=== PATIENT | female | born 1950 | race African-American/Black ===

== ENCOUNTER 2018-05-23 16:44 | Inpatient (IN) | payer MEDICARE, OTHER ==
[~2018-05-23] VITALS: Ht 167.6 cm; Wt 94.3 kg
[2018-05-23 16:59] VITALS: BP 156/95
--- NOTE | 2018-05-23 17:02 | NUR ---
NANNETTE FROM [facility] DT LOW O2 SAT, PATIENT IS VENT/TRACHE DEPENDENT, ON 100% FI02 UPON ARRIVAL. PATIENT IS NON DIAPHORETIC, RECTAL TEMP 101. RT AT BEDSIDE. MD AT BEDSIDE.
--- NOTE | 2018-05-23 17:12 | NUR ---
TRACH PORTEX 7. CURRENT SETTINGS AC 12 TV 400 FIO2 100 PEEP 5.
[2018-05-23] MEDS ORDERED: ACETAMINOPHEN 325 MG TABLET MC ONE (17:30)
[2018-05-23 17:35] LABS: APPEARANCE,URINE SL CLOUDY (CLEAR); BILIRUBIN,URINE NEGATIVE (NEGATIVE); BLOOD, URINE TRACE-INTA Ery/uL (NEGATIVE); COLOR,URINE YELLOW (YELLOW); KETONES,URINE NEGATIVE (NEGATIVE); LEUKOCYTE ESTERASE ,URINE 2+ (NEGATIVE); NITRITE, URINE NEGATIVE (NEGATIVE); PH,URINE 7.5 (5.0-8.0); PROTEIN,URINE 2+ mg/dl (NEGATIVE); UGLUCOSE NEGATIVE (NEGATIVE); UROBILINOGEN,URINE 0.2 EU/dL (0.2)
[2018-05-23 17:38] LABS: BASOPHILS % (AUTO) 0.3 % (0.0-2.0); HEMATOCRIT 27 % (33-45); HEMOGLOBIN 8.8 g/dL (11.5-14.8); LYMPHOCYTES # (AUTO) 1.3 /CMM (0.8-4.8); LYMPHOCYTES % (AUTO) 7.9 % (20.0-44.0); MEAN CORPUSCULAR HEMOGLOBIN 27 PG (26.0-33.0); MEAN CORPUSCULAR HGB CONC 32 g/dl (31.0-36.0); MEAN CORPUSCULAR VOLUME 84 fL (82-100); MONOCYTES # (AUTO) 1.2 /CMM (0.1-1.30); MONOCYTES % (AUTO) 7.6 % (2.0-12.0); NEUTROPHILS % (AUTO) 81.2 % (43.0-81.0); PLATELET COUNT (AUTO) 168 /CMM (150-450); RDW COEFFICIENT OF VARIATION 18.8 (11.5-15.0); RED BLOOD CELL COUNT(AUTO) 3.25 MIL/uL (4.0-5.2)
[2018-05-23] MEDS ORDERED: ACETAMINOPHEN 325 MG TABLET ONE (17:40)
[2018-05-23 17:42] LABS: ABG BASE EXCESS 4.9 mmol/L; ABG OXYGEN SATURATION 98.5 % (92.0-98.5); ABG PCO2 31.5 mmHg (35.0-45.0); ABG PH 7.555 (7.350-7.450); ABG PO2 146.7 mmHg (75.0-100.0); AaDO2 534.8 mmHg; COHb 0.4 % (0.5-1.5); MetHb 0.2 % (0.0-1.5); O2Hb 97.9 % (94.0-97.0); PEEP,BG 5 cm H2O; SITE, ABG Right Radial; VT, ABG 400 mL
[2018-05-23 17:47] LABS: BACTERIA,URINE Few /HPF (None Seen); RBC,URINE 0-2 /HPF (0-2); SQUAMOUS EPITHELIAL CELL,UR Few /HPF (None Seen); WBC,URINE 21-50 /HPF (0-3)
[2018-05-23 17:54] LABS: ALBUMIN 1.9 g/dL (3.4-5.0); BILIRUBIN,DIRECT 0.3 mg/dL (0.0-0.2); BILIRUBIN,TOTAL 0.5 mg/dL (0.2-1.0); CALCIUM, SERUM 8.4 mg/dL (8.5-10.1); CREATININE 0.8 mg/dL (0.6-1.3); POTASSIUM 5.3 mmol/L (3.5-5.1); TOTAL PROTEIN, SERUM 8.2 g/dL (6.4-8.2)
[2018-05-23 17:56] LABS: TROPONIN I 0.018 ng/mL (0.00-0.056)
[2018-05-23 17:59] LABS: INR 1.21 (0.87-1.13)
[2018-05-23] MEDS ORDERED: ALBUTEROL FS 2.5 MG/0.5 ML VIAL.NEB ONE (18:48)
[2018-05-23] MEDS ORDERED: ALBUTEROL FS 2.5 MG/0.5 ML VIAL.NEB NEB ONE (19:00)
[2018-05-23] MEDS ORDERED: MEROPENEM 1,000 MG in IV NS 0.9% 100 ML IV ONE (19:00)
[2018-05-23] MEDS ORDERED: VANCOMYCIN 1 GM in IV D5W 250 ML IV ONE (19:00)
[2018-05-23] MEDS ORDERED: LEVOFLOXACIN 750 MG /D5W 150ML 150 ML IV ONE (19:03)
--- NOTE | 2018-05-23 19:17 | NUR ---
CALLED NURSE SUP FOR ICU BED
[2018-05-23] MEDS ORDERED: IV NS 0.9% 1,000 ML IV PRN (19:24)
[2018-05-23] MEDS ORDERED: ONDANSETRON HCL/PF 4 MG/2 ML VIAL IVP PRN (19:30)
[2018-05-23] MEDS ORDERED: ALBUTEROL FS 2.5 MG/0.5 ML VIAL.NEB NEB PRN (19:30)
[2018-05-23] MEDS ORDERED: MAG HYDROX/AL HYDROX/SIMETH 30 ML UDC PO PRN (19:30)
[2018-05-23] MEDS ORDERED: MAGNESIUM HYDROXIDE 30 ML UDC PO PRN (19:30)
[2018-05-23] MEDS ORDERED: HYDROCODONE/APAP 5/325MG 1 EACH TABLET PO PRN (19:30)
[2018-05-23] MEDS ORDERED: ACETAMINOPHEN 325 MG TABLET PO PRN (19:30)
[2018-05-23] MEDS ORDERED: ZOLPIDEM TARTRATE 5 MG TABLET PO PRN (19:30)
[2018-05-23] MEDS ORDERED: VANCOMYCIN 1 GM in IV NS 0.9% 250 ML IV SCH (19:30)
[2018-05-23] MEDS ORDERED: IPRATROPIUM NEB FS 0.5 MG/2.5 ML AMPUL.NEB NEB PRN (19:30)
[2018-05-23 19:52] LABS: ABG BASE EXCESS 7.2 mmol/L; ABG OXYGEN SATURATION 98.3 % (92.0-98.5); ABG PCO2 52.2 mmHg (35.0-45.0); ABG PH 7.414 (7.350-7.450); ABG PO2 152.8 mmHg (75.0-100.0); COHb 0.4 % (0.5-1.5); MetHb 0.6 % (0.0-1.5); O2Hb 97.3 % (94.0-97.0); PEEP,BG 5 cm H2O; SITE, ABG Right Radial; VENT MODE, BG AC 12; VT, ABG 400 mL
[2018-05-23] MEDS: LEVOFLOXACIN 750 MG /D5W 150ML PIGGYBACK IV ONE ×2 (20:58→21:10)
--- NOTE | 2018-05-23 20:58 | NUR ---
REPORT GIVEN TO CARYN. PT AWAITING TRANSFER TO ICU.
[2018-05-23] MEDS ORDERED: FEE PK DOSING 1 MIN EA MC ONE (21:04)
--- NOTE | 2018-05-23 21:20 | NUR ---
TRANSFERED TO FLOOR. STABLE CONDITION.
--- NOTE | 2018-05-23 21:20 | NUR ---
PT RECEIVED WITH A PORTEX 7 TRACH ON [facility] VENT WITH NOTED SETTINGS. SUCTIONED MODERATE AMOUNT OF ARMSTRONG THICK SECRETIONS. VENT ALARMS ARE SET AND AUDIBLE WITH AMBU BAG AT BEDSIDE. SLOT MACHINE FLOOR PERSON CUFF PRESSURE NOTED. VENT IS PLUGGED INTO RED OUTLET NO RESPIRATORY DISTRESS NOTED AT THIS TIME, WILL CONTINUE TO MONITOR.
[2018-05-23 21:30] VITALS: BP 124/86
[2018-05-23] MEDS: ENOXAPARIN SODIUM 40 MG/0.4 ML DISP.SYRIN SQ SCH ×2 (21:49→21:56)
--- NOTE | 2018-05-23 21:56 | NUR ---
ICU/RN- LOVENOX DOSE 40MG SQ WAS NOT GIVEN, PER DOCUMENTATION FROM NURSING FACILITY PT. RECEIVED 80 MG SC TODAY.
[2018-05-23 22:00] VITALS: BP 104/59
--- NOTE | 2018-05-23 22:11 | NUR ---
DE IONIZER OPERATOR SEPSIS REASSESSMENT NO FLUID CHALLENGE GIVEN.
--- NOTE | 2018-05-23 22:32 | NUR ---
SWIMMING POOL MAINTENANCE SUPERVISOR RCD PT FROM ER W/DX SEPSIS, PNA; PT IS ALERT. NSR ON MONITOR. PORTEX 7 W/VENT SETTINGS AC 12 400 80% +5. G TUBE CLAMPED. PATITO MIDLINE W/NS @ 100 ML/HR. FAMILY AT BEDSIDE UPDATED ON PLAN OF CARE. PER FAMILY MEMBERS PT IS A FULL CODE.
[2018-05-23 23:00] VITALS: BP 158/89
--- NOTE | 2018-05-23 23:00 | NUR ---
LOGISTICS ANALYST NOTE RECEIVED CONTINUITY OF CARE FROM ICU NURSE CARYN.
[2018-05-23] MEDS ORDERED: ATOR10TA GT (23:21)
[2018-05-23] MEDS ORDERED: *INS HUMA SQ (23:21)
[2018-05-23] MEDS ORDERED: ASPI-1169 PO (23:21)
[2018-05-23] MEDS ORDERED: QUET25TA PO (23:21)
[2018-05-23] MEDS ORDERED: MELA3TAB PO (23:21)
[2018-05-23] MEDS ORDERED: THIA100T13 PO (23:21)
[2018-05-23] MEDS ORDERED: ENOX40DI SQ (23:21)
[2018-05-23] MEDS ORDERED: FOLI1TAB16 PO (23:21)
[2018-05-23] MEDS ORDERED: LANS15CA13 GT (23:21)
[2018-05-23] MEDS ORDERED: INSU100V7 SQ (23:21)
[2018-05-23] MEDS ORDERED: PROP10TA68 GT (23:21)
[2018-05-23] MEDS ORDERED: MULT-594 PO (23:21)
--- NOTE | 2018-05-23 23:26 | NUR ---
RENEWABLE ENERGY DIVISION MANAGER NOTE REVIEWED HOME MEDS WITH PRIMARY DECISION MAKER JOVANA, CONFIRMED HOME MEDICATIONS. HOME MEDS PLACED IN MED RECON. INFORMED MED TO RECONCILE HOME MEDICATIONS. ALSO INFORMED MD REGARDING PATIENT C/O FEELING ANXIOUS AND STATES SHE HAS TAKEN ATIVAN BEFORE FOR HER ANXIETY, WITH ORDER FOR ATIVAN 1MG Q6 PRN. NOTED. WILL CONTINUE TO MONITOR.
[2018-05-23 23:30] VITALS: BP 142/68
[2018-05-23] MEDS: LORAZEPAM INJ 2 MG/ML VIAL IV PRN (23:40)
[2018-05-24] VITALS (58 sets, daily range): BP systolic 87–165; BP diastolic 39–149
--- NOTE | 2018-05-24 00:20 | NUR ---
HAT BRIM CURLER NOTE RELAYED TO MD. PATIENT NPO AND DIABETIC, PATIENT CURRENTLY RUNNING IVF NS. PER MD CHANGE IVF TO D5 NS AT THE SAME RATE. NOTED.
[2018-05-24] MEDS: IV D5/ 0.9% NACL 1,000 ML IV PRN ×2 (00:30→12:19)
--- NOTE | 2018-05-24 00:52 | NUR ---
UNDERWRITING ASSISTANT NOTE SEEN AND EXAMINED BY DR. AHUMADA. PER MD TITRATE FIO2 TO 60%. RT MADE AWARE. INFORMED MD PATIENT IS DIABETIC, OK FOR ACCU CHECK Q6 WITH MILD SLIDING SCALE, PATIENT C/O LEFT SIDED PAIN EARLIER, PATIENT COMFORTABLE AT THIS TIME. PER MD OK FOR MORPHINE 2MG IVP Q4 PRN FOR PAIN. WILL CONTINUE TO MONITOR
[2018-05-24] MEDS ORDERED: DEXTROSE 50%-WATER 50 ML DISP.SYRIN IV PRN (01:00)
[2018-05-24] MEDS: MORPHINE SULFATE INJ 2 MG/ML DISP.SYRIN IV PRN ×4 (03:53→22:57)
[2018-05-24 04:37] LABS: BASOPHILS % (AUTO) 0.1 % (0.0-2.0); EOSINOPHILS % (AUTO) 0.7 % (0.0-6.0); HEMATOCRIT 24 % (33-45); HEMOGLOBIN 7.9 g/dL (11.5-14.8); LYMPHOCYTES # (AUTO) 0.7 /CMM (0.8-4.8); LYMPHOCYTES % (AUTO) 4.5 % (20.0-44.0); MEAN CORPUSCULAR HEMOGLOBIN 27 PG (26.0-33.0); MEAN CORPUSCULAR HGB CONC 32 g/dl (31.0-36.0); MEAN CORPUSCULAR VOLUME 83 fL (82-100); MONOCYTES # (AUTO) 0.8 /CMM (0.1-1.30); MONOCYTES % (AUTO) 5.2 % (2.0-12.0); NEUTROPHILS # (AUTO) 14.4 /CMM (1.8-8.9); NEUTROPHILS % (AUTO) 89.5 % (43.0-81.0); PLATELET COUNT (AUTO) 141 /CMM (150-450); RDW COEFFICIENT OF VARIATION 18.3 (11.5-15.0); RED BLOOD CELL COUNT(AUTO) 2.95 MIL/uL (4.0-5.2)
[2018-05-24] MEDS ORDERED: MEROPENEM 500 MG in IV NS 0.9% 50 ML IV SCH (05:00)
[2018-05-24 05:03] LABS: B-TYPE NATRIURETIC PEPTIDE 10987 PG/ML (0-125); CALCIUM, SERUM 7.8 mg/dL (8.5-10.1); CARBON DIOXIDE 29 mmol/L (21-32); CHLORIDE 100 mmol/L (98-107); CHOLESTEROL 37 mg/dL (<200); CREATININE 0.8 mg/dL (0.6-1.3); GLUCOSE 158 mg/dL (74-106); LDL 23 mg/dL (0-99); PHOSPHORUS 3.5 mg/dL (2.5-4.9); POTASSIUM 5.1 mmol/L (3.5-5.1); SODIUM SERUM 134 mmol/L (136-145); THYROID STIMULATING HORMONE 3.277 uIU/mL (0.358-3.74); TRIGLYCERIDES 61 mg/dL (30-150); UREA NITROGEN, BLOOD 16 mg/dL (7-18)
[2018-05-24 05:06] LABS: HDL CHOLESTEROL < 10 mg/dL (40-60)
[2018-05-24] MEDS: BLOOD SUGAR DIAGNOSTIC 1 EACH STRIP IN SCH ×4 (05:21→23:40)
[2018-05-24] MEDS: INSULIN REGULAR, HUMAN 100 UNIT/ML 3 ML VIAL SQ PRN ×2 (05:27→23:41)
--- NOTE | 2018-05-24 07:23 | NUR ---
EXCEPTIONAL CHILDREN'S TEACHER CLOSING NOTE NO SIGNIFICANT CHANGES OVERNIGHT. TOLERATING CURRENT VENT SETTINGS. NO RESPIRATORY DISTRESS NOTED. F/C PATENT AND INTACT, DRAINING BY GRAVITY. AFEBRILE. HOB ELEVATED. SIDE RAILS UP AND LOCKED. TURNED AND REPOSITIONED Q2 AND PRN. BED KEPT AT LOWEST POSITION. CALL LIGHT KEPT WITHIN EASY REACH. CONTINUITY OF CARE ENDORSED TO AM NURSE.
[2018-05-24] MEDS ORDERED: VANCOMYCIN 1.25 GM in IV D5W 500 ML IV SCH (08:00)
--- NOTE | 2018-05-24 09:20 | NUR ---
RT NOTE PER DR, PELEG DECREASED VT TO 350, ABG IN 1HR
[2018-05-24] MEDS ORDERED: ACET650S26 GT (09:24)
[2018-05-24] MEDS ORDERED: IPRA3AMP23 IH (09:24)
[2018-05-24] MEDS: LORAZEPAM INJ 2 MG/ML VIAL IV PRN ×3 (10:20→22:43)
--- NOTE | 2018-05-24 11:21 | NUR ---
RT NOTE PT NOTED TO HAVE LOW SPO2, @ 84% INCREASED FIO2 TO 100% PT STILL IN DISTRESS INCREASED VT TO 400 PT, SPO2 IS 94% RN MADE AWARE WILL MONITOR
--- NOTE | 2018-05-24 11:24 | NUR ---
RN NOTE 0720: Received patient lethargic but able to answer yes/no questions. With trache to vent, tolerated settings at this time. With GT intact, clamped. With Allan cath intact, noted with jostin colored urine drained to BSD. PATITO midline intact, IVF infusing as ordered. 0900: S/E by Dr. Almanza, with order to change Vt 350 from 400, ABG in 2 hours, will continue to monitor. 1030: Patient noted agitated, RR 40's, AT 140's. Noted moving a lot, does not cooperate at this time. Ativan and Morphine given as ordered. Will continue to monitor. 1100: Patient still agitated, left message to Dr. Paige if may have new orders. RR 41, ST 130's. 88% O2 sat on 100% FIO2. 1120: Patient became more calm. ST 110's, RR 33, 94% O2 sat on 100% FIO2.
[2018-05-24] MEDS: MEROPENEM 1 G in IV NS 0.9% 100 ML IV SCH ×2 (12:44→20:49)
[2018-05-24 14:02] LABS: ABG BASE EXCESS 3.5 mmol/L; ABG OXYGEN SATURATION 96.5 % (92.0-98.5); ABG PCO2 42.2 mmHg (35.0-45.0); ABG PH 7.439 (7.350-7.450); ABG PO2 100.4 mmHg (75.0-100.0); AaDO2 570.4 mmHg; COHb 0.3 % (0.5-1.5); O2Hb 95.2 % (94.0-97.0); SITE, ABG Left Brachial
--- NOTE | 2018-05-24 14:07 | NUR ---
RT NOTE PER MD ORDER INCREASED PEEP TO 8 POST ABG RESULTS
--- NOTE | 2018-05-24 14:09 | NUR ---
RN NOTE Made Dr. Almanza in the unit aware for the episode of agitation and desat 80's. PLaced on 400 Vt and 100%. ABD rendered just now, reviewed by MD, with order to place on PEEP 8, aware for epside of SBP's 90's. Will continue to monitor. MD also ordered to decrease IVF rate to 50mL/hr.
--- NOTE | 2018-05-24 17:20 | NUR ---
[facility] is trach/vent dependent[phone] She is totally dependent with adl's and bedfast most of the time. Current plan is to [facility] back [facility] once discharge. Addendum: 05/24/18 at 1720 by ALLA MERRITT RN Amended: Links added.
--- NOTE | 2018-05-24 19:30 | NUR ---
FLIGHT ENGINEER MANAGER INITIAL NOTE RECEIVED PATIENT AWAKE, ALERT AND ORIENTED. ABLE TO MOUTH NEEDS. VENT DEPENDENT. NO DISTRESS NOTED. C/O 9/10 GENERAL PAIN, MOSTLY ON THE LEFT SIDE OF HER BODY. SKIN WARM AND DRY TO TOUCH. WITH VENT SETTINGS AC 12, TV 400, FIO2 80%, PEEP 8, SPO2 100%. ON TELE MONITOR SINUS TACH. WITH F/C PATENT, INTACT, DRAINING BY GRAVITY. GT PATENT, INTACT, IN PLACE. PATITO MIDLINE PATENT, INTACT, IVF RUNNING. HOB ELEVATED. SIDE RAILS UP AND LOCKED. BED KEPT AT LOWEST POSITION. TURNED AND REPOSITIONED. CALL LIGHT KEPT WITHIN EASY REACH. WILL CONTINUE TO MONITOR.
[2018-05-24] MEDS: VANCOMYCIN 1 GM in IV D5W 250 ML IV SCH (19:35)
[2018-05-24] MEDS ORDERED: ENOXAPARIN SODIUM 40 MG/0.4 ML DISP.SYRIN SQ SCH (19:48)
--- NOTE | 2018-05-24 20:00 | NUR ---
CLOTH DRIER NOTE PATIENT SLEEPING COMFORTABLY. WILL CONTINUE TO MONITOR.
--- NOTE | 2018-05-24 20:40 | NUR ---
CYLINDER CHECKER NOTE PATIENT AWAKE, ANXIOUS, RESTLESS, TACHYPNEIC. PROVIDE ATIVAN PRN GIVEN. WILL CONTINUE TO MONITOR.
--- NOTE | 2018-05-24 22:00 | NUR ---
LATHMAKER NOTE SISTER AND DAUGHTER AT BEDSIDE, UPDATED ON PATIENTS CONDITION. PER SISTER NIECE JOVANA IS THE PRIMARY DECISION MAKER FOR HER SISTER, SHE'S THE PRIMARY RESEARCH FOOD TECHNOLOGIST, RESPONSIBILITY WAS PASSED ON FROM DAUGHTER.
--- NOTE | 2018-05-24 23:00 | NUR ---
REPAIRER EVAPORATOR NOTE FAMILY AT BEDSIDE, NOTED PATIENT VERY ANXIOUS, RESTLESS, RIGHT ARM PULLING LINES, PLACED BACK ON RIGHT WRIST RESTRAINT FOR SAFETY. TACHYPNEIC 30-40, UNCOOPERATIVE AT THIS TIME. TACHYCARDIC 130-140, DESATURATION 88%. INFORMED RT. PLACED PATIENT ON FIO2 100% AT THIS TIME. MORPHINE AND ATIVAN GIVEN PER ORDER. SUCTIONED NEEDED. WILL CONTINUE TO MONITOR.
--- NOTE | 2018-05-24 23:26 | NUR ---
MULTIPLE WIRE SAWYER NOTE PATIENT RESTING COMFORTABLY, MORE CALM , HR 117, SPO2 100%, RR 27. WILL CONTINUE TO MONITOR.
[2018-05-25] VITALS (96 sets, daily range): BP systolic 69–147; BP diastolic 29–95
--- NOTE | 2018-05-25 01:51 | NUR ---
RT PT RECEIVED W TRACHED AND ON A VENT W NOTED SETTINGS. ALARMS ARE ON AND AUDIBLE W VENT PLUGGED INTO RED OUTLET AND AMBUBAG @ BEDSIDE. PT IS AWAKE AND ALERT. TOLERATING VENT SETTINGS WELL. CERTIFIED SURGICAL ASSISTANT CUFF PRESSURE NOTED. MODERATE AMOUNTS OF WHITE/YELLOW SPUTUM SUCTIONED. NO RESPIRATORY DISTRESS NOTED @ THIS TIME. WILL CONTINUE TO MONITOR. Addendum: 05/25/18 at 0153 by FRANK WEST RT Amended: Links added.
--- NOTE | 2018-05-25 03:00 | NUR ---
WILDLAND FIREFIGHTER NOTE RT AT BEDSIDE, FIO2 TITRATED TO 80%. WILL CONTINUE TO MONITOR.
--- NOTE | 2018-05-25 04:00 | NUR ---
MANAGER UNIVERSITY NOTE PATIENT AWAKE, ALERT, CALM, COOPERATIVE, RESTRAINT REMOVED AT THIS TIME. NOTED WITH ORAL TEMP 100.6, COOLING MEASURES RENDERED. WILL CONTINUE TO MONITOR.
[2018-05-25 04:28] LABS: EOSINOPHILS % (AUTO) 1.1 % (0.0-6.0); HEMATOCRIT 21 % (33-45); LYMPHOCYTES # (AUTO) 0.8 /CMM (0.8-4.8); LYMPHOCYTES % (AUTO) 5.8 % (20.0-44.0); MEAN CORPUSCULAR HEMOGLOBIN 27 PG (26.0-33.0); MEAN CORPUSCULAR HGB CONC 32 g/dl (31.0-36.0); MEAN CORPUSCULAR VOLUME 84 fL (82-100); MONOCYTES # (AUTO) 0.7 /CMM (0.1-1.30); MONOCYTES % (AUTO) 5.1 % (2.0-12.0); NEUTROPHILS # (AUTO) 11.5 /CMM (1.8-8.9); PLATELET COUNT (AUTO) 136 /CMM (150-450); RDW COEFFICIENT OF VARIATION 18.6 (11.5-15.0); RED BLOOD CELL COUNT(AUTO) 2.53 MIL/uL (4.0-5.2); WHITE BLOOD COUNT (AUTO) 13.1 K/uL (4.3-11.0)
[2018-05-25 04:43] LABS: HEMOGLOBIN 6.8 g/dL (11.5-14.8)
[2018-05-25 04:48] LABS: CALCIUM, SERUM 7.4 mg/dL (8.5-10.1); CREATININE 0.8 mg/dL (0.6-1.3); MAGNESIUM 1.8 mg/dL (1.8-2.4); PHOSPHORUS 2.8 mg/dL (2.5-4.9)
[2018-05-25] MEDS: MEROPENEM 1 G in IV NS 0.9% 100 ML IV SCH ×2 (05:32→12:16)
[2018-05-25] MEDS: BLOOD SUGAR DIAGNOSTIC 1 EACH STRIP IN SCH ×3 (05:41→17:14)
[2018-05-25 05:45] LABS: NEUTROPHILS % (MANUAL) 89 (42-76)
[2018-05-25 05:46] LABS: EOSINOPHILS % (MANUAL) 1 % (0-4); LYMPHOCYTES % (MANUAL) 7 % (16-48); MONOCYTES % (MANUAL) 3 % (0-11.0)
--- NOTE | 2018-05-25 05:50 | NUR ---
PLASTICS PROCESS HAND NOTE DR. MYERS PAGED FOR CRITICAL HGB RESULT 6.8. WAITING FOR CALL BACK.
[2018-05-25] MEDS: INSULIN REGULAR, HUMAN 100 UNIT/ML 3 ML VIAL SQ PRN ×2 (05:52→11:40)
--- NOTE | 2018-05-25 06:11 | NUR ---
CHILDREN'S SERVICE WORKER NOTE RECEIVED CALL BACK FROM MD WITH ORDER FOR STOOL OB, IRON PANEL, REPEAT CBC.
[2018-05-25 06:46] LABS: IRON, SERUM 8 ug/dl (50-175); TOTAL IRON BINDING CAPACITY 172 ug/dl (250-450)
--- NOTE | 2018-05-25 07:26 | NUR ---
INITIAL MANAGER HARDWARE NOTE RCVD PT AWAKE, ABLE TO FOLLOW COMMANDS, ST ON TELE, TACHYPNEIC, SATURATION >95%. SIU TO GRAVITY DRAINING CONCENTRATED YELLOW URINE. G-TUBE PLACEMENT VERIFIED BY AUSCULTATION/ASPIRATION. NO GASTRIC CONTENTS OBTAINED. TUBING HAS DRY, BROWN COLOR FLUID. PATITO MIDLINE C/D/I/PATENT. NO S/O INFILTRATION/ASPIRATION OBSERVED. IVF INFUSING. WILL CONTINUE TO MONITOR PT FOR SAFETY AND COMFORT. CALL LIGHT WITHIN REACH. BED IN LOW AND LOCKED POSITION.
--- NOTE | 2018-05-25 07:27 | NUR ---
[employer] SCHOOL PRINCIPAL CLOSING NOTE PATIENT RESTING COMFORTABLY. NO DISTRESS NOTED. TOLERATING CURRENT VENT SETTINGS. GT PATENT, INTACT, IN PLACE. F/C DRAINING BY GRAVITY. NO S/S OF PAIN OR DISCOMFORT AT THIS TIME. HOB ELEVATED. SIDE RAILS UP AND LOCKED. TURNED AND REPOSITIONED Q2 AND PRN. BED KEPT AT LOWEST POSITION. CALL LIGHT KEPT WITHIN EASY REACH. CONTINUITY OF CARE ENDORSED TO AM NURSE.
[2018-05-25 07:48] LABS: BASOPHILS % (AUTO) 0.3 % (0.0-2.0); EOSINOPHILS % (AUTO) 1.5 % (0.0-6.0); LYMPHOCYTES # (AUTO) 0.8 /CMM (0.8-4.8); LYMPHOCYTES % (AUTO) 6.2 % (20.0-44.0); MEAN CORPUSCULAR HEMOGLOBIN 27 PG (26.0-33.0); MEAN CORPUSCULAR HGB CONC 32 g/dl (31.0-36.0); MEAN CORPUSCULAR VOLUME 83 fL (82-100); MONOCYTES # (AUTO) 0.6 /CMM (0.1-1.30); MONOCYTES % (AUTO) 4.9 % (2.0-12.0); NEUTROPHILS # (AUTO) 11.5 /CMM (1.8-8.9); NEUTROPHILS % (AUTO) 87.1 % (43.0-81.0); PLATELET COUNT (AUTO) 122 /CMM (150-450); RDW COEFFICIENT OF VARIATION 18.5 (11.5-15.0); RED BLOOD CELL COUNT(AUTO) 2.43 MIL/uL (4.0-5.2); WHITE BLOOD COUNT (AUTO) 13.2 K/uL (4.3-11.0)
[2018-05-25 07:58] LABS: HEMATOCRIT 20 % (33-45); HEMOGLOBIN 6.5 g/dL (11.5-14.8)
--- NOTE | 2018-05-25 08:10 | NUR ---
WOUND CARE CONSULT: PT PRESENTS WITH SACRAL SCARRING, SCARRING AT GROIN AREAS AND LEFT BK STUMP (SKIN INTACT). ALL SKIN PROTECTION RECOMMENDATIONS DISCUSSED WITH NURSING STAFF. CURRENT MATILDE SCORE IS 11. PT ON MARGO ISOFLEX LOW AIRLOSS BED. IN AGREEMENT WITH PLAN OF CARE. Addendum: 05/25/18 at 0811 by JEFFREY GIFFORD WNDNU Amended: Links added.
[2018-05-25] MEDS: LORAZEPAM INJ 2 MG/ML VIAL IV PRN ×4 (08:56→14:59)
[2018-05-25] MEDS: VANCOMYCIN 1 GM in IV D5W 250 ML IV SCH ×2 (08:56→20:05)
[2018-05-25 09:53] LABS: ABG BASE EXCESS 2.8 mmol/L; ABG OXYGEN SATURATION 98.1 % (92.0-98.5); ABG PCO2 28.8 mmHg (35.0-45.0); ABG PH 7.558 (7.350-7.450); AaDO2 424.2 mmHg; COHb 0.5 % (0.5-1.5); MetHb 0.5 % (0.0-1.5); O2Hb 97.1 % (94.0-97.0); PEEP,BG 8 cm H2O; SITE, ABG Right Radial; VENT MODE, BG AC 80%; VT, ABG 400 mL
--- NOTE | 2018-05-25 10:31 | NUR ---
TRANSPORTATION OPERATIONS MANAGER NOTE PT'S REPEAT HGB 6.5 DR. BYRD'S STUDENT IN UNIT ASSESSING PT'S INFORMED OF PT'S HGB TRENDING DOWN. ROCHELLE MOORE INFORMED, HE RECOMMENDED 2 UNITS PRBCs. ORDER ENTERED. PT'S NIECE CALLED TO GET CONSENT OVER THE PHONE. SHE STATED THAT SHE'S ON HER WAY TO THE HOSPITAL AND WILL BE HERE SOON. WILL F/U DR. JARRETT INFORMED OF PT'S ABG RESULTS RECOMMENDED TO ADJUST VENT SETTINGS. RT MADE CHANGES PT UNABLE TO TOLERATE 50% FiO2 THIS WAS CHANGED TO 60%. WILL CONTINUE TO MONITOR PT.
--- NOTE | 2018-05-25 11:00 | NUR ---
RT CHANGED SETTING TO PEEP OF [address] JARRETT
[2018-05-25] MEDS: MORPHINE SULFATE INJ 2 MG/ML DISP.SYRIN IV PRN (11:04)
--- NOTE | 2018-05-25 11:11 | NUR ---
MALT ROASTER NOTE PT APPEARS AGITATED, RESTLESS, TACHYPNEIC 40s, TACHYCARDIC 140s, SATURATION 82% ATIVAN GIVEN ORDERED, PT REMAINED AGITATED MORPHINE WAS ADDED. PT'S RR AND HR DECREASING SLOWLY, SATURATION IMPROVING. WILL CONTINUE TO MONITOR.
--- NOTE | 2018-05-25 12:38 | NUR ---
FINANCIAL OFFICER NOTE PT'S NIECE, BRANDON AT BEDSIDE UPDATED ON PT'S CONDITION, QUESTIONS ANSWERED TO HER SATISFACTION. CONSENT FOR BLOOD SIGNED.
[2018-05-25] MEDS: IV D5/ 0.9% NACL 1,000 ML IV PRN (13:20)
--- NOTE | 2018-05-25 15:17 | NUR ---
BOXING INSTRUCTOR NOTE DR. BYRD AT BEDSIDE ASSESSING PT AND PLACING CENTRAL LINE. PT'S BLOOD PRESSURE MARGINAL, PER DR. JARRETT TO START DIPRIVAN AND PRBC's PENDING TO BE READY FROM BLOOD BANK. EARLIER PEEP INCREASED TO 10. WILL CONTINUE TO MONITOR.
--- NOTE | 2018-05-25 16:47 | NUR ---
RT RECD PT TRACH'D ON MECH VENT MAY ORDERED SETTING BAG AND MASK AT HOB ALARMS ON AND AUDIBLE
[2018-05-25] MEDS: PROPOFOL 100 ML IV PRN (17:14)
--- NOTE | 2018-05-25 18:29 | NUR ---
YACHT CAPTAIN NOTE PT CURRENTLY SEDATED, 1 OUT OF 2 PRBC's TRANSFUSING NO REACTION OBSERVED. PT'S VITAL SIGNS WITH EXCEPTION OF BLOOD PRESSURE ARE STABLE. WILL CONTINUE TO MONITOR. IV SITES REMAIN C/D/I/PATENT. SIU TO GRAVITY DRAINING CONCENTRATED, YELLOW URINE AND PEG CLAMPED. PT'S CARE WILL BE ENDORSED TO MARKETING TEACHER RN FOR CONTINUITY OF CARE. BED IN LOW AND LOCKED POSITION.
--- NOTE | 2018-05-25 20:00 | NUR ---
HEALTHCARE SOCIAL WORKER PRBC TRANSFUSED; NO IMMEDIATE S/O REACTIONS. VSS. CONTINUE TO MONITOR.
--- NOTE | 2018-05-25 20:15 | NUR ---
CARE TECH MULTIPLE READINGS OF SBP IN THE 80s SINCE 1700 LEVOPHED STARTED PER PROTOCOL. TITRATE NEEDED.
[2018-05-25] MEDS: NOREPINEPHRINE 8 MG in IV D5W 500 ML IV PRN (20:16)
[2018-05-26] VITALS (104 sets, daily range): BP systolic 80–111; BP diastolic 39–69
--- NOTE | 2018-05-26 | NUR ---
ONCOLOGY REP SECOND PRBC TRANSFUSED; NO IMMEDIATE S/O REACTIONS. VSS. CONTINUE TO MONITOR.
[2018-05-26] MEDS: MEROPENEM 1 G in IV NS 0.9% 100 ML IV SCH ×4 (00:05→21:10)
[2018-05-26] MEDS: BLOOD SUGAR DIAGNOSTIC 1 EACH STRIP IN SCH ×5 (00:05→23:50)
[2018-05-26] MEDS: PROPOFOL 100 ML IV PRN ×5 (00:07→23:08)
[2018-05-26] MEDS: INSULIN REGULAR, HUMAN 100 UNIT/ML 3 ML VIAL SQ PRN ×4 (00:12→17:56)
[2018-05-26 02:31] LABS: OCCULT BLOOD STOOL POSITIVE (NEGATIVE)
[2018-05-26 05:09] LABS: BASOPHILS % (AUTO) 0.1 % (0.0-2.0); EOSINOPHILS % (AUTO) 3.7 % (0.0-6.0); HEMATOCRIT 28 % (33-45); HEMOGLOBIN 9.4 g/dL (11.5-14.8); LYMPHOCYTES # (AUTO) 0.8 /CMM (0.8-4.8); LYMPHOCYTES % (AUTO) 4.7 % (20.0-44.0); MEAN CORPUSCULAR HEMOGLOBIN 28 PG (26.0-33.0); MEAN CORPUSCULAR HGB CONC 33 g/dl (31.0-36.0); MEAN CORPUSCULAR VOLUME 85 fL (82-100); MONOCYTES # (AUTO) 0.6 /CMM (0.1-1.30); MONOCYTES % (AUTO) 3.6 % (2.0-12.0); NEUTROPHILS # (AUTO) 14.7 /CMM (1.8-8.9); NEUTROPHILS % (AUTO) 87.9 % (43.0-81.0); PLATELET COUNT (AUTO) 129 /CMM (150-450); RDW COEFFICIENT OF VARIATION 17.8 (11.5-15.0); RED BLOOD CELL COUNT(AUTO) 3.32 MIL/uL (4.0-5.2); WHITE BLOOD COUNT (AUTO) 16.8 K/uL (4.3-11.0)
[2018-05-26 05:29] LABS: CALCIUM, SERUM 7.9 mg/dL (8.5-10.1); CREATININE 0.8 mg/dL (0.6-1.3); MAGNESIUM 1.9 mg/dL (1.8-2.4); PHOSPHORUS 3.2 mg/dL (2.5-4.9); POTASSIUM 3.8 mmol/L (3.5-5.1)
[2018-05-26 06:17] LABS: EOSINOPHILS % (MANUAL) 1 % (0-4); LYMPHOCYTES % (MANUAL) 3 % (16-48); MONOCYTES % (MANUAL) 4 % (0-11.0); NEUTROPHILS % (MANUAL) 92 (42-76)
--- NOTE | 2018-05-26 06:48 | NUR ---
INSTRUMENT PANEL ASSEMBLER PT REMAINED ON DIPRIVAN AT 20 MCG/KG/MIN WITH INTERMITTENT EPISODES OF INCREASED RESPIRATIONS. CONTINUE TO MONITOR.
--- NOTE | 2018-05-26 07:51 | NUR ---
INITIAL KNOCKDOWN MAN NOTE RCVD PT SEDATED ON DIPRIVAN, SR ON TELE, TOLERATING ORDERED VENT SETTINGS, SLIGHTLY TACHYPNEIC AT RATE 30 NO APPARENT DISTRESS OBSERVED, MODERATE AMOUNT OF ORAL AND TRACHEAL SECRETIONS SUCTIONED. LEVOPHED STARTED OVER NIGHT. SIU TO GRAVITY DRAINING CLOUDY, CONCENTRATED YELLOW URINE. PEG CLAMPED, PLACEMENT VERIFIED BY AUSCULTATION/ASPIRATION. THICK CLEAR SECRETIONS OBSERVED IN TUBING. IV SITES C/D/I/PATENT, NO S/O INFILTRATION/PHLEBITIS OBSERVED. WILL CONTINUE TO MONITOR PT FOR SAFETY AND COMFORT. CALL LIGHT WITHIN REACH. BED IN LOW AND LOCKED POSITION.
[2018-05-26] MEDS: VANCOMYCIN 1 GM in IV D5W 250 ML IV SCH ×2 (08:04→19:22)
--- NOTE | 2018-05-26 09:01 | NUR ---
DESK EDITOR NOTE SEDATION VACATION DONE PT ABLE TO FOLLOW SIMPLE COMMANDS SUCH OPEN/CLOSE HAND, MOVE TOES ON RIGHT FOOT. PT PLACED BACK ON SEDATION DUE TO BECOMING TACHYPNEIC AND FIGHTING THE VENT. WILL CONTINUE TO MONITOR.
[2018-05-26] MEDS: LORAZEPAM INJ 2 MG/ML VIAL IV PRN ×2 (10:43→12:31)
[2018-05-26] MEDS: NOREPINEPHRINE 8 MG in IV D5W 500 ML IV PRN (12:47)
--- NOTE | 2018-05-26 17:17 | NUR ---
DUMP GRADER NOTE UNABLE TO TAKE PT'S ORAL/AXILLARY TEMP. RECTAL PROBE INSERTED READING OF 93.8. BEAR HUGGER BLANKET REQUESTED AND PLACED OVER PT. WILL CONTINUE TO MONITOR.
[2018-05-26] MEDS: IV D5/ 0.9% NACL 1,000 ML IV PRN (17:57)
[2018-05-26 18:02] LABS: ABG BASE EXCESS 1.5 mmol/L; ABG OXYGEN SATURATION 93.4 % (92.0-98.5); ABG PH 7.392 (7.350-7.450); ABG PO2 72.5 mmHg (75.0-100.0); AaDO2 595.5 mmHg; COHb 0.5 % (0.5-1.5); MetHb 0.7 % (0.0-1.5); O2Hb 92.3 % (94.0-97.0); PEEP,BG 10 cm H2O; SITE, ABG Right Radial; VT, ABG 400 mL
--- NOTE | 2018-05-26 18:18 | NUR ---
COMBAT SYSTEMS OFFICER NOTE PT SEDATED, TOLERATING ORDERED VENT SETTINGS, SR ON TELE. SIU TO GRAVITY DRAINING CLOUDY, YELLOW URINE WITH SEDIMENT. PEG REMAINS CLAMPED. IV SITES C/D/I/PATENT. NO S/O INFILTRATION/PHLEBITIS OBSERVED IVF INFUSING, PRESSORS ON BOARD. BEAR HUGGER ON. PT'S CARE WILL BE ENDORSED TO ONLINE ADVERTISING DIRECTOR RN FOR CONTINUITY OF CARE. BED IN LOW AND LOCKED POSITION. CALL LIGHT WITHIN REACH.
--- NOTE | 2018-05-26 18:41 | NUR ---
FIBERGLASS ROLLER NOTE DR. BYRD IN UNIT UPDATED REGARDING PT'S STOOL OB POSITIVE, TO REVIEW BLOOD AND URINE CX SENSITIVITIES, INFORMED OF PT BEING HYPOTHERMIC, AND ABG RESULTS. NO NEW ORDERS RCVD. WILL CONTINUE TO MONITOR PT.
--- NOTE | 2018-05-26 19:00 | NUR ---
RN NOTE RECEIVED PT IN NO ACUTE DISTRESS IN BED. PT IS SEDATED ON PROPOFOL @ 50MCG/MIN TO DECREASE WORK OF BREATHING. PT IS ON LEVO @ 6 MCG/HR FOR PRESSURE CONTROL. PT IS ON MECHANICAL VENT VIA TRACH. TRACH SITE IS CLEAN DRY AND INTACT. PT IS TOLERATING VENT SETTING WELL WITH O2 SAT @ 98%. VENT SETTING ARE AC 10, TV 400, FIO2 100%, PEEP 10. PT IS ON TELE WITH SR-ST ON THE MONITOR @ 90-100. PT HAS GTUBE THAT IS CLEAN DRY INTACT AND PATENT WITH FREE WATER FLUSH. PT HAS FC THAT IS CLEAN DRY INTACT AND PATENT WITH CLOUDY YELLOW URINE DRAINING. PT HAS PATITO MIDLINE WITH D5NS @ 50ML/HR AND R TLC FEMORAL PICC THAT IS CLEAN DRY INTACT AND PATENT WITH PROPOFOL AND LEVO INFUSING. BED IN LOW LOCK POSITIONS WITH RIALS UP X 2. CALL LIGHT WITHIN REACH AND ALL SAFETY MEASURES ENSURED AND FRAN OUT. WILL CONTINUE TO MONITOR.
--- NOTE | 2018-05-26 20:45 | NUR ---
RECEIVED PT TRACHED ON VENT. NO RESP DISTRESS NOTED. PT TOLERATING VENT SETTINGS. SX'D FOR SML AMT OF THICK WHITE SECRETIONS. VENT ALARMS SET AND AUDIBLE. AMBU BAG AT BEDSIDE. VENT PLUGGED INTO RED OUTLET. WILL CONTINUE TO MONITOR. Addendum: 05/26/18 at 2046 by EVA CUEVAS RT Amended: Links added.
[2018-05-27] VITALS (116 sets, daily range): BP systolic 70–156; BP diastolic 35–79
[2018-05-27] MEDS: PROPOFOL 100 ML IV PRN ×3 (03:55→22:23)
[2018-05-27] MEDS: BLOOD SUGAR DIAGNOSTIC 1 EACH STRIP IN SCH ×3 (05:04→17:49)
[2018-05-27] MEDS: MEROPENEM 1 G in IV NS 0.9% 100 ML IV SCH ×2 (05:04→12:23)
[2018-05-27 05:18] LABS: HEMATOCRIT 29 % (33-45); HEMOGLOBIN 9.6 g/dL (11.5-14.8); LYMPHOCYTES # (AUTO) 0.6 /CMM (0.8-4.8); MEAN CORPUSCULAR HEMOGLOBIN 28 PG (26.0-33.0); MEAN CORPUSCULAR HGB CONC 33 g/dl (31.0-36.0); MEAN CORPUSCULAR VOLUME 85 fL (82-100); MONOCYTES # (AUTO) 0.6 /CMM (0.1-1.30); NEUTROPHILS # (AUTO) 16.4 /CMM (1.8-8.9); PLATELET COUNT (AUTO) 119 /CMM (150-450); RDW COEFFICIENT OF VARIATION 17.8 (11.5-15.0); RED BLOOD CELL COUNT(AUTO) 3.41 MIL/uL (4.0-5.2); WHITE BLOOD COUNT (AUTO) 18.9 K/uL (4.3-11.0)
[2018-05-27 05:41] LABS: CALCIUM, SERUM 7.8 mg/dL (8.5-10.1); CREATININE 0.8 mg/dL (0.6-1.3); MAGNESIUM 1.7 mg/dL (1.8-2.4); PHOSPHORUS 3.1 mg/dL (2.5-4.9); POTASSIUM 3.5 mmol/L (3.5-5.1)
--- NOTE | 2018-05-27 06:22 | NUR ---
RN NOTE PT REMAINS IN NO ACUTE DISTRESS IN BED. PT DID NOT HAVE ANY SIGNIFICANT CHANGE IN CONDITION DURING SHIFT. PT TOLERATED VENT SETTING WELL. ALL NEEDS MET, ALL ORDERS CARRIED OUT. WILL ENDORSE CARE TO AM RN FOR CONTINUITY OF CARE.
[2018-05-27 06:56] LABS: BAND % (MANUAL) 5 % (0.0-5.0); LYMPHOCYTES % (MANUAL) 1 % (16-48)
[2018-05-27 06:57] LABS: EOSINOPHILS % (MANUAL) 4 % (0-4); METAMYELOCYTES % 1 % (0-0); MONOCYTES % (MANUAL) 2 % (0-11.0); NEUTROPHILS % (MANUAL) 87 (42-76)
--- NOTE | 2018-05-27 07:48 | NUR ---
INITIAL PHYSICIAN ASSISTANT PRIMARY CARE NOTE RCVD PT SEDATED, TOLERATING ORDERED VENT SETTINGS, SR ON TELE, SIU TO GRAVITY DRAINING CLOUDY, YELLOW URINE WITH SEDIMENT. G-TUBE CLAMPED ABOUT 120ML RESIDUAL OBTAINED. HOB ELEVATED FOR ASPIRATION PRECAUTIONS. IV SITES C/D/I/PATENT. NO S/O INFILTRATION/PHLEBITIS OBSERVED IVF INFUSING. PT REMAINS ON LEVO. WILL CONTINUE TO MONITOR PT FOR SAFETY AND COMFORT. CALL LIGHT WITHIN REACH. BED IN LOW AND LOCKED POSITION.
[2018-05-27] MEDS: VANCOMYCIN 1 GM in IV D5W 250 ML IV SCH (08:17)
[2018-05-27] MEDS: NOREPINEPHRINE 8 MG in IV D5W 500 ML IV PRN (10:07)
[2018-05-27] MEDS: Magnesium 1GM/D5W 100ML PREMIX 100 ML IV SCH ×2 (10:29→11:21)
[2018-05-27 11:08] LABS: ABG BASE EXCESS 0.5 mmol/L; ABG OXYGEN SATURATION 91.1 % (92.0-98.5); ABG PCO2 42.4 mmHg (35.0-45.0); ABG PH 7.397 (7.350-7.450); ABG PO2 62.5 mmHg (75.0-100.0); COHb 0.3 % (0.5-1.5); MetHb 0.8 % (0.0-1.5); O2Hb 90.1 % (94.0-97.0); PEEP,BG 10 cm H2O; SITE, ABG Right Radial; VT, ABG 400 mL
--- NOTE | 2018-05-27 11:51 | NUR ---
SEDATION VACATION NOTE PT OFF DIPRIVAN REMAINS DROWSY, OPENS EYES TO NAME, VOLUNTARY MOVEMENT OBSERVED RUE, VITAL SIGNS REMAIN STABLE, LEVO CONTINUES TO INFUSE. PT ABLE TO FOLLOW SIMPLE COMMANDS SUCH OPEN EYES/MOUTH BUT UNABLE TO SQUEEZE WITH RIGHT HAND. WILL CONTINUE TO MONITOR.
[2018-05-27] MEDS: INSULIN REGULAR, HUMAN 100 UNIT/ML 3 ML VIAL SQ PRN (12:23)
[2018-05-27] MEDS: Z GUARD REMEDY 2 OZ OINT TP PRN (12:24)
[2018-05-27] MEDS: PANTOPRAZOLE 40 MG VIAL IV SCH (13:08)
--- NOTE | 2018-05-27 13:53 | NUR ---
TYPISTS SUPERVISOR NOTE DR. JARRETT IN UNIT UPDATED REGARDING PT'S CONDITION INCLUDING RESIDUAL AMOUNT THIS AM, PROTONIX REQUESTED. AGREED AND RECOMMENDED TO KEEP PT NPO.
[2018-05-27] MEDS: PIPERACILLIN /TAZOBACTAM 3.375 G in IV D5W 50 ML IV SCH ×2 (15:46→18:00)
[2018-05-27] MEDS: IV D5/ 0.9% NACL 1,000 ML IV PRN (17:49)
[2018-05-27] MEDS ORDERED: AMPICILLIN 500 MG in IV NS 0.9% 50 ML IV SCH (18:00)
--- NOTE | 2018-05-27 18:41 | NUR ---
CUTTER BRAKE LINING NOTE PT REMAINS LIGHTLY SEDATED, SR/ST ON TELE, TACHYPNEIC, SIU TO GRAVITY DRAINING CLOUDY, YELLOW URINE, G-TUBE PLACEMENT VERIFIED BY AUSCULTATION/ASPIRATION. NO GASTRIC CONTENT OBTAINED. IV SITES C/D/I/PATENT, IVF, DIPRIVAN AND LEVO INFUSING. PT'S CARE WILL BE ENDORSED TO PRODUCTION WORKER RN FOR CONTINUITY OF CARE. BED IN LOW AND LOCKED POSITION. DR. BYRD IN UNIT EARLIER TODAY INFORMED OF PT'S LOW URINARY OUTPUT. NO NEW ORDERS RECEIVED.
--- NOTE | 2018-05-27 21:02 | NUR ---
RECEIVED PT TRACHED ON VENT. NO RESP DISTRESS NOTED. PT TOLERATING VENT SETTINGS. SX'D FOR MOD AMT OF THICK WHITE SECRETIONS. VENT ALARMS SET AND AUDIBLE. AMBU BAG AT BEDSIDE. VENT PLUGGED INTO RED OUTLET. WILL CONTINUE TO MONITOR. Addendum: 05/27/18 at 2103 by EVA CUEVAS RT Amended: Links added.
[2018-05-28] VITALS (116 sets, daily range): BP systolic 53–130; BP diastolic 28–84
[2018-05-28] MEDS: PIPERACILLIN /TAZOBACTAM 3.375 G in IV D5W 50 ML IV SCH ×4 (01:17→17:00)
[2018-05-28] MEDS: BLOOD SUGAR DIAGNOSTIC 1 EACH STRIP IN SCH ×4 (01:17→17:30)
[2018-05-28 04:59] LABS: BASOPHILS % (AUTO) 0.2 % (0.0-2.0); EOSINOPHILS % (AUTO) 6.3 % (0.0-6.0); HEMATOCRIT 29 % (33-45); HEMOGLOBIN 9.4 g/dL (11.5-14.8); LYMPHOCYTES # (AUTO) 1.1 /CMM (0.8-4.8); LYMPHOCYTES % (AUTO) 5.4 % (20.0-44.0); MEAN CORPUSCULAR HEMOGLOBIN 28 PG (26.0-33.0); MEAN CORPUSCULAR HGB CONC 33 g/dl (31.0-36.0); MEAN CORPUSCULAR VOLUME 85 fL (82-100); MONOCYTES # (AUTO) 0.9 /CMM (0.1-1.30); MONOCYTES % (AUTO) 4.1 % (2.0-12.0); NEUTROPHILS # (AUTO) 17.6 /CMM (1.8-8.9); PLATELET COUNT (AUTO) 108 /CMM (150-450); RDW COEFFICIENT OF VARIATION 18.7 (11.5-15.0); RED BLOOD CELL COUNT(AUTO) 3.41 MIL/uL (4.0-5.2)
[2018-05-28] MEDS: PROPOFOL 100 ML IV PRN ×2 (05:10→13:48)
[2018-05-28 05:13] LABS: CREATININE 1.2 mg/dL (0.6-1.3); MAGNESIUM 2.4 mg/dL (1.8-2.4); PHOSPHORUS 3.2 mg/dL (2.5-4.9); POTASSIUM 3.4 mmol/L (3.5-5.1)
[2018-05-28] MEDS: INSULIN REGULAR, HUMAN 100 UNIT/ML 3 ML VIAL SQ PRN ×3 (06:15→17:31)
--- NOTE | 2018-05-28 07:05 | NUR ---
RN INITIAL NOTES RECEIVED PT TRACH IN PLACE, ON VENT. TOLERATING WELL. NO RESPIRATORY DISTRESS NOTED. PT ON HIGH PEEP. NO SIGNS OF PAIN NOTED. PT SEDATED, ON DIPRIVAN AT 20MCG/KG/MIN. RIGHT TLC IN PLACE. PT ON LEVO AT 10MCG/MIN. PATITO MIDLINE IN PLACE. IVF INFUSING. GT CLAMPED. FC IN PLACE. NO HEMATURIA NOTED. PT REPOSITIONED. WILL CONTINUE TO MONITOR.
[2018-05-28] MEDS: NOREPINEPHRINE 8 MG in IV D5W 500 ML IV PRN ×2 (07:13→20:02)
[2018-05-28 07:37] LABS: EOSINOPHILS % (MANUAL) 8 % (0-4); LYMPHOCYTES % (MANUAL) 1 % (16-48); MONOCYTES % (MANUAL) 2 % (0-11.0); NEUTROPHILS % (MANUAL) 89 (42-76)
[2018-05-28 08:58] LABS: ABG BASE EXCESS -0.9 mmol/L; ABG OXYGEN SATURATION 81.8 % (92.0-98.5); ABG PCO2 38.9 mmHg (35.0-45.0); ABG PH 7.403 (7.350-7.450); ABG PO2 46.3 mmHg (75.0-100.0); AaDO2 338.7 mmHg; COHb 0.3 % (0.5-1.5); MetHb 0.6 % (0.0-1.5); O2Hb 81.1 % (94.0-97.0); SITE, ABG Right Radial
--- NOTE | 2018-05-28 09:17 | NUR ---
RT POST ABG RESULTS PER DR FELIX ORDER PEEP INCREASED TO 14, FIO2 TO 75% Addendum: 05/28/18 at 0918 by KERI GARCIA RT Amended: Links added.
--- NOTE | 2018-05-28 09:20 | NUR ---
RN NOTES SEEN AND EXAMINED BY DR JARRETT. PT OFF DIPRIVAN FOR SEDATION VACATION. NOTED FACIAL GRIMACE ON PAINFUL STIMULI. PT ON LEVO AT 10 MCG/MIN, WILL TITRATE ACCORDINGLY. MD AWARE OF ABG RESULT. ORDERED TO INCREASSE FI02 TO 75% AND PEEP TO +14. WILL CLOSELY MONITOR.
[2018-05-28] MEDS: POTASSIUM CL. PREMIX PERIPHER. 50 ML IV SCH ×2 (09:53→11:30)
[2018-05-28] MEDS: PANTOPRAZOLE 40 MG VIAL IV SCH (12:19)
[2018-05-28] MEDS: OSMOLITE 1.2 CAL 1,000 ML LIQUID GT PRN (13:47)
--- NOTE | 2018-05-28 14:00 | NUR ---
RN NOTES SEEN AND EXAMINED BY SAMEER BYRD DNP. AWARE OF LAB VA;UES: WBC 21, HGB 9.4, HCT 29, PLATELET 108. AFEBRILE. ON IV ATN. NO ASE NOTED. POTASSIUM 3.4, REPLACED WITH POTASSIUM CHLORIDE IV 20MEQ TOTAL. SAMEER AWARE OF CXR RESULT. WILL START PT ON GTF. WILL MONITOR FOR TOLERANCE. WILL CONTINUE TO MONITOR.
[2018-05-28] MEDS: IV D5/ 0.9% NACL 1,000 ML IV PRN (16:18)
--- NOTE | 2018-05-28 18:32 | NUR ---
RN CLOSING NOTES PT REMAINS STABLE. NO SIGNIFICANT CHANGE NOTED. REMAINS ON LEVO AT 8MCG/MIN AND DIPRIVAN 20MCG/KG/MIN. TITRATED ACCORDINGLY. PT STARTED ON GTF, RESIDUAL AROUND 40ML. IV LINES IN PLACE. FC IN PLACE. KEPT CLEAN AND DRY. REPOSITIONED Q2. KEPT COMFORTABLE. WILL ENDORSE FOR CONTINUITY OF CARE.
--- NOTE | 2018-05-28 19:00 | NUR ---
RN NOTE RECEIVED PT IN NO ACUTE DISTRESS IN BED. PT IS SEDATED ON PROPOFOL @ 20MCG/MIN TO DECREASE WORK OF BREATHING. PT IS ON LEVO @ 8 MCG/HR FOR PRESSURE CONTROL. PT IS ON MECHANICAL VENT VIA TRACH. TRACH SITE IS CLEAN DRY AND INTACT. PT IS TOLERATING VENT SETTING WELL WITH O2 SAT @ 97%. VENT SETTING ARE AC 10, TV 400, FIO2 75%, PEEP 14. PT IS ON TELE WITH SR-ST ON THE MONITOR @ 90-100. PT HAS GTUBE THAT IS CLEAN DRY INTACT AND PATENT WITH FREE WATER FLUSH. PT IS ON GTUBE FEEDING OSMOLITE @ 40ML/HR. PT HAS FC THAT IS CLEAN DRY INTACT AND PATENT WITH CLOUDY YELLOW URINE DRAINING. PT HAS PATITO MIDLINE WITH D5NS @ 50ML/HR AND R TLC FEMORAL PICC THAT IS CLEAN DRY INTACT AND PATENT WITH PROPOFOL AND LEVO INFUSING. BED IN LOW LOCK POSITIONS WITH RIALS UP X 2. CALL LIGHT WITHIN REACH AND ALL SAFETY MEASURES ENSURED AND FRAN OUT. WILL CONTINUE TO MONITOR.
--- NOTE | 2018-05-28 19:30 | NUR ---
RN NOTE CHECKED RESIDUALS AND GOT 250MLS OF FEEDING. TURNED OFF TUBE FEEDING OSMOLITE AND WILL CONTINUE TO MONITOR.
[2018-05-28] MEDS ORDERED: FEE PK DOSING 1 MIN EA MC ONE (20:29)
[2018-05-28] MEDS ORDERED: VANCOMYCIN 1 GM in IV D5W 250 ML IV SCH (21:00)
[2018-05-28] MEDS: MORPHINE SULFATE INJ 2 MG/ML DISP.SYRIN IV PRN (21:49)
--- NOTE | 2018-05-28 22:00 | NUR ---
RN NOTE RECHECKED RESIDUALS AND STILL @ 250ML.
[2018-05-29] VITALS (110 sets, daily range): BP systolic 65–131; BP diastolic 28–69
[2018-05-29] MEDS: PIPERACILLIN /TAZOBACTAM 3.375 G in IV D5W 50 ML IV SCH ×4 (00:38→17:23)
[2018-05-29] MEDS: BLOOD SUGAR DIAGNOSTIC 1 EACH STRIP IN SCH ×4 (00:42→17:22)
[2018-05-29] MEDS: INSULIN REGULAR, HUMAN 100 UNIT/ML 3 ML VIAL SQ PRN ×3 (00:44→11:36)
--- NOTE | 2018-05-29 01:00 | NUR ---
RN NOTE RECHECKED RESIDUALS AND CONTINUES TO BE 250ML
[2018-05-29] MEDS: PROPOFOL 100 ML IV PRN ×4 (03:54→21:02)
--- NOTE | 2018-05-29 05:00 | NUR ---
RN NOTE RECHECKED RESIDUALS AND STILL 250ML NOTIFIED SMALL ORDER CUTTER MD JASKARAN PRECIADO NP AND RECEIVED REGLAN 5MG Q8H VIA GT. READBACK ORDERS PERFORMED. WILL CARRY OUT ORDERS.
[2018-05-29 05:06] LABS: BASOPHILS # (AUTO) 0.1 /CMM (0.0-0.2); BASOPHILS % (AUTO) 0.2 % (0.0-2.0); EOSINOPHILS % (AUTO) 7.3 % (0.0-6.0); HEMATOCRIT 28 % (33-45); HEMOGLOBIN 8.9 g/dL (11.5-14.8); LYMPHOCYTES # (AUTO) 1.5 /CMM (0.8-4.8); LYMPHOCYTES % (AUTO) 6.5 % (20.0-44.0); MEAN CORPUSCULAR HEMOGLOBIN 28 PG (26.0-33.0); MEAN CORPUSCULAR HGB CONC 32 g/dl (31.0-36.0); MEAN CORPUSCULAR VOLUME 85 fL (82-100); MONOCYTES # (AUTO) 1.2 /CMM (0.1-1.30); MONOCYTES % (AUTO) 5.2 % (2.0-12.0); NEUTROPHILS # (AUTO) 18.3 /CMM (1.8-8.9); NEUTROPHILS % (AUTO) 80.8 % (43.0-81.0); PLATELET COUNT (AUTO) 143 /CMM (150-450); RDW COEFFICIENT OF VARIATION 19.9 (11.5-15.0); RED BLOOD CELL COUNT(AUTO) 3.26 MIL/uL (4.0-5.2); WHITE BLOOD COUNT (AUTO) 22.6 K/uL (4.3-11.0)
[2018-05-29 05:19] LABS: CALCIUM, SERUM 8.2 mg/dL (8.5-10.1); CREATININE 1.4 mg/dL (0.6-1.3); MAGNESIUM 2.1 mg/dL (1.8-2.4); PHOSPHORUS 4.3 mg/dL (2.5-4.9); POTASSIUM 3.7 mmol/L (3.5-5.1)
[2018-05-29] MEDS: METOCLOPRAMIDE HCL 10 MG TABLET GT SCH ×3 (05:52→21:01)
--- NOTE | 2018-05-29 07:05 | NUR ---
RN INITIAL NOTES RECEIVED PT TRACH IN PLACE, ON VENT. TOLERATING WELL. NO RESPIRATORY DISTRESS NOTED. PT ON HIGH PEEP, +14. NO SIGNS OF PAIN NOTED. PT SEDATED, ON DIPRIVAN AT 30MCG/KG/MIN. RIGHT FEMORAL TLC IN PLACE. PT ON LEVO AT 10MCG/MIN. PATITO MIDLINE IN PLACE. IVF INFUSING. GT CLAMPED. WILL MONITOR FOR RESIDUAL. FC IN PLACE. NO HEMATURIA NOTED. PT REPOSITIONED. WILL CONTINUE TO MONITOR.
[2018-05-29] MEDS: NOREPINEPHRINE 8 MG in IV D5W 500 ML IV PRN (08:14)
[2018-05-29 08:55] LABS: ABG BASE EXCESS -2.9 mmol/L; ABG OXYGEN SATURATION 97.5 % (92.0-98.5); ABG PCO2 35.9 mmHg (35.0-45.0); ABG PH 7.398 (7.350-7.450); ABG PO2 116.1 mmHg (75.0-100.0); AaDO2 344.4 mmHg; COHb 0.6 % (0.5-1.5); MetHb 0.8 % (0.0-1.5); O2Hb 96.1 % (94.0-97.0); PEEP,BG 14 cm H2O; SITE, ABG Right Radial; VT, ABG 400 mL
[2018-05-29] MEDS ORDERED: VANCOMYCIN 0.75 GM in IV D5W 250 ML IV SCH (09:00)
--- NOTE | 2018-05-29 09:16 | NUR ---
VENT CHANGES BELLOW ORDER: FIO2 60% PEEP +12 Addendum: 05/29/18 at 0917 by CHRISTIANO ANGEL RT Amended: Links added.
--- NOTE | 2018-05-29 09:20 | NUR ---
RN NOTES SEEN AND EXAMINED BY DR JARRETT. PT REMAINS ON DIPRIVAN AND LEVO, TITRATED ACCORDINGLY. MD AWARE OF LAB VALUES AND CXR RESULT. MD ALSO AWARE OF ABG RESULT. MD ORDERED TO CHANGE FI02 TO 60% AND PEEP TO +12. WILL CLOSELY MONITOR.
--- NOTE | 2018-05-29 11:00 | NUR ---
RN NOTES SEEN AND EXAMINED BY DR RANDOLPH. MD AWARE OF LAB VALUES: WBC 22.6, HGB 8.9, HCT 28, PLATELET 143. NO SIGNS OF ACTIVE BLEEDING NOTED. SODIUM 135, POTASSIUM 3.7, BUN 23, CREA 1.4. GTF ON HOLD D/T HIGH RESIDUAL. PT ON REGLAN. ORDERED KUB TODAY. WILL HAVE GI CONSULT. PT REMAINS ON DIPRIVAN AND LEVO, TITRATED. WILL MONITOR.
[2018-05-29] MEDS: IV D5/ 0.9% NACL 1,000 ML IV PRN (11:34)
[2018-05-29] MEDS: PANTOPRAZOLE 40 MG VIAL IV SCH (12:06)
[2018-05-29] MEDS: OSMOLITE 1.2 CAL 1,000 ML LIQUID GT PRN (13:38)
[2018-05-29] MEDS: MORPHINE SULFATE INJ 2 MG/ML DISP.SYRIN IV PRN (18:03)
--- NOTE | 2018-05-29 18:38 | NUR ---
RN CLOSING NOTES PT REMAINS STABLE. NO SIGNIFICANT CHANGE NOTED. REMAINS ON LEVO AT 7MCG/MIN AND DIPRIVAN 30MCG/KG/MIN. TITRATED ACCORDINGLY. PT RESTARTED ON GTF. IV LINES IN PLACE. FC IN PLACE. KEPT CLEAN AND DRY. REPOSITIONED Q2. KEPT COMFORTABLE. WILL ENDORSE FOR CONTINUITY OF CARE.
--- NOTE | 2018-05-29 19:45 | NUR ---
ELEVATOR RUNNER RCD PT W/DX SEPSIS, UTI, PNA; PT IS SEDATED ON PROPOFOL AT 30 MCG/KG/MIN; NSR ON MONITOR. PORTEX 7 W/VENT SETTINGS AC 10 400 60% +12; MIN WHITE THICK SECRETIONS NOTED. RENDERED ORAL CARE. OSMOLITE @ 50 ML/HR VIA G TUBE 20 ML RESIDUAL NOTED; INCREASE PT TOLERATES. REGLAN TO BE GIVEN ORDERED. SIU CATHETER W/MIN DARK URINE OUTPUT NOTED. PICC LINE PLACEMENT PENDING; PER INFECTION CONTROL RIGHT FEM TLC TO BE REMOVED. CONTINUE TO MONITOR.
--- NOTE | 2018-05-29 20:19 | NUR ---
RECEIVED PT TRACHED PTX 7 ON VENT. NO RESP DISTRESS NOTED. PT TOLERATING VENT SETTINGS. SX'D FOR MOD AMT OF THICK WHITE SECRETIONS. VENT ALARMS SET AND AUDIBLE. AMBU BAG AT BEDSIDE. VENT PLUGGED INTO RED OUTLET. WILL CONTINUE TO MONITOR. Addendum: 05/29/18 at 2020 by EVA CUEVAS RT Amended: Links added.
[2018-05-29] MEDS: VANCOMYCIN 500 MG in IV D5W 100 ML IV SCH (21:02)
--- NOTE | 2018-05-29 21:10 | NUR ---
MEDICAL ENGINEER PICC LINE RN AT BEDSIDE.
--- NOTE | 2018-05-29 22:00 | NUR ---
CHANNEL MARKETING COORDINATOR PER PICC LINE NURSE WHEN MIDLINE WAS REMOVED HE NOTICED PUS AROUND THE INSERTION SITE. MIDLINE AND TLC CATH TIPS SENT FOR CULTURES.
[2018-05-30] VITALS (103 sets, daily range): BP systolic 85–123; BP diastolic 18–65
[2018-05-30] MEDS: BLOOD SUGAR DIAGNOSTIC 1 EACH STRIP IN SCH ×5 (00:38→23:53)
[2018-05-30] MEDS: PIPERACILLIN /TAZOBACTAM 3.375 G in IV D5W 50 ML IV SCH ×5 (00:38→23:52)
[2018-05-30] MEDS: INSULIN REGULAR, HUMAN 100 UNIT/ML 3 ML VIAL SQ PRN ×5 (00:40→23:53)
[2018-05-30] MEDS: NOREPINEPHRINE 8 MG in IV D5W 500 ML IV PRN ×2 (00:45→17:47)
--- NOTE | 2018-05-30 04:06 | NUR ---
CRUDE OIL DRIVER PT GIVEN FULL BED BATH AND ECG CHANGE. PT TOLERATED WELL. CONTINUES ON PROPOFOL @ 30 MCG/KG/MIN AND LEVOPHED @ 7 MCG/MIN. TITRATE ABLE.
[2018-05-30 04:25] LABS: BASOPHILS % (AUTO) 0.2 % (0.0-2.0); EOSINOPHILS % (AUTO) 10.9 % (0.0-6.0); HEMATOCRIT 28 % (33-45); HEMOGLOBIN 9.3 g/dL (11.5-14.8); LYMPHOCYTES # (AUTO) 1.5 /CMM (0.8-4.8); LYMPHOCYTES % (AUTO) 7.1 % (20.0-44.0); MEAN CORPUSCULAR HEMOGLOBIN 28 PG (26.0-33.0); MEAN CORPUSCULAR HGB CONC 33 g/dl (31.0-36.0); MEAN CORPUSCULAR VOLUME 84 fL (82-100); MONOCYTES # (AUTO) 1.7 /CMM (0.1-1.30); MONOCYTES % (AUTO) 8.4 % (2.0-12.0); NEUTROPHILS # (AUTO) 15.1 /CMM (1.8-8.9); NEUTROPHILS % (AUTO) 73.4 % (43.0-81.0); PLATELET COUNT (AUTO) 106 /CMM (150-450); RDW COEFFICIENT OF VARIATION 20.1 (11.5-15.0); RED BLOOD CELL COUNT(AUTO) 3.32 MIL/uL (4.0-5.2); WHITE BLOOD COUNT (AUTO) 20.5 K/uL (4.3-11.0)
[2018-05-30 04:50] LABS: CALCIUM, SERUM 8.1 mg/dL (8.5-10.1); CREATININE 1.7 mg/dL (0.6-1.3); PHOSPHORUS 4.5 mg/dL (2.5-4.9); POTASSIUM 3.4 mmol/L (3.5-5.1)
[2018-05-30 05:26] LABS: BAND % (MANUAL) 2 % (0.0-5.0); EOSINOPHILS % (MANUAL) 8 % (0-4); LYMPHOCYTES % (MANUAL) 2 % (16-48); MONOCYTES % (MANUAL) 7 % (0-11.0); NEUTROPHILS % (MANUAL) 81 (42-76)
[2018-05-30] MEDS: PROPOFOL 100 ML IV PRN ×2 (05:30→17:47)
[2018-05-30] MEDS: METOCLOPRAMIDE HCL 10 MG TABLET GT SCH ×3 (05:44→20:48)
--- NOTE | 2018-05-30 08:00 | NUR ---
ICU/RN: INITIAL NOTES,AM RECEIVED REPORT FROM NIGHT NURSE. PT SEDATED ON DIPRIVAN. TRACH (PORTEX #7) TO VENT WITH SETTINGS ORDERED BY MD, NO ACUTE DISTRESS NOTED AT THIS TIME, WILL CONTINUE TO MONITOR AND ASSESS. PT ON TELE, SINUS. SIU CATH IN PLACE, DRAINING YELLOW URINE. TUBE FEEDING INFUSING AT 20 ML/HR, WILL INCREASE TOLERATED TO REACH GOAL. RIGHT UPPER ARM PICC LINE PATENT AND INTACT, INSERTED OVERNIGHT. LEVO INFUSING FOR BP SUPPORT. IV FLUIDS INFUSING ORDERED. ALL NEEDS WILL BE ATTENDED TO, SAFETY MEASURES TAKEN, BED IN LOW POSITION, SIDE RAILS UP, CALL LIGHT WITHIN REACH. TEMP 97.4, BEAR HUGGER APPLIED.
[2018-05-30] MEDS: VANCOMYCIN 500 MG in IV D5W 100 ML IV SCH (08:45)
--- NOTE | 2018-05-30 08:45 | NUR ---
ICU/RN: JENNIFER JENNINGS, TROUGH [address]. [facility] NOTIFIED.
[2018-05-30] MEDS ORDERED: POTASSIUM CHLORIDE 10 MEQ TABLET.SA GT ONE (09:00)
--- NOTE | 2018-05-30 09:00 | NUR ---
SEDATION VACATION: DIPRIVAN RESUMED PER 'S ORDERS. DURING SEDATION VACATION PT WAS TACHYPNEIC AND IN RESPIRATORY DISTRESS. WILL CONTINUE TO MONITOR
[2018-05-30 09:08] LABS: ABG BASE EXCESS -3.2 mmol/L; ABG OXYGEN SATURATION 95.3 % (92.0-98.5); ABG PCO2 29.4 mmHg (35.0-45.0); ABG PH 7.451 (7.350-7.450); ABG PO2 79.4 mmHg (75.0-100.0); COHb 0.2 % (0.5-1.5); MetHb 0.3 % (0.0-1.5); O2Hb 94.8 % (94.0-97.0); PEEP,BG 10 cm H2O; SITE, ABG Right Radial
--- NOTE | 2018-05-30 09:56 | NUR ---
WOUND CARE CONSULT/FOLLOWUP: PT SEEN FOR RT EAR INTACT DEEP TISSUE INJURY. PT TENDS TO FAVOR HER RT SIDE MAKING OFFLOADING DIFFICULT. SACRAL OPEN AREA NOTED OVER AREA OF PREVIOUS SCARRING. RECOMMENDATIONS MADE FOR WOUND CARE AND SKIN PROTECTION. DISCUSSED WITH NURSING STAFF. ALL SKIN PROTECTION AND PRESSURE ULCER PREVENTION MEASURES IN PLACE. PT NOTED TO HAVE MULTIPLE CO-MORBIDITIES INCLUDING SEPSIS, RESPIRATORY FAILURE (ON VENTILATOR), HX OF ANOXIC ENCEPHALOPATHY, ANEMIA AND MALNUTRITION WELL LOW EJECTION FRACTION. FURTHER SKIN BREAKDOWN MAY BE UNAVOIDABLE DUE TO MULTIPLE CO-MORBIDITIES. WILL SEE PRNGabrielle CHAUDHRY IN AGREEMENT WITH PLAN OF CARE.
--- NOTE | 2018-05-30 10:00 | NUR ---
ICU/RN: FOLLOW UP WOUND CARE CONSULT. ASSESSED WITH JEFFREY. WILL FOLLOW ALL NEW ORDERS.
[2018-05-30] MEDS: HYDROGEL DRESSING 90 GM TUBE TP SCH (11:32)
[2018-05-30] MEDS: IV D5/ 0.9% NACL 1,000 ML IV PRN (11:51)
[2018-05-30] MEDS: PANTOPRAZOLE 40 MG VIAL IV SCH (12:13)
--- NOTE | 2018-05-30 18:24 | NUR ---
ICU/RN ENDING NOTES,AM REPORT WILL BE ENDORSED TO NIGHT NURSE FOR CONTINUATION OF CARE. ALL NEEDS ATTENDED TO. PT TRACH TO VENT WITH SETTINGS ORDERED BY MD. NO ACUTE DISTRESS NOTED AT THIS TIME. PT TURNED AND REPOSITIONED, BED BATH GIVEN, LINENS CHANGED. VSS. WILL CONTINUE CARE. Addendum: 05/30/18 at 1830 by CRISTHIAN RAMIREZ RN PT ON LOW DOSE LEVO FOR BP SUPPORT AND 30 MCG DIPRIVAN FOR SEDATION
[2018-05-30 19:15] LABS: CREATININE, URINE 75.8 MG/DL (30.0-125.0)
[2018-05-30] MEDS: FLUCONAZOLE (100 MG) 100 MG TABLET PO SCH (19:31)
--- NOTE | 2018-05-30 20:07 | NUR ---
RECEIVED PT TRACHED PTX 7 ON VENT. NO RESP DISTRESS NOTED. PT TOLERATING VENT SETTINGS. SX'D FOR MOD AMT OF THICK WHITE SECRETIONS. VENT ALARMS SET AND AUDIBLE. AMBU BAG AT BEDSIDE. VENT PLUGGED INTO RED OUTLET. WILL CONTINUE TO MONITOR. Addendum: 05/30/18 at 2008 by EVA CUEVAS RT Amended: Links added.
[2018-05-31] VITALS (106 sets, daily range): BP systolic 84–129; BP diastolic 34–77
[2018-05-31] MEDS: PROPOFOL 100 ML IV PRN ×4 (02:27→20:22)
[2018-05-31 05:01] LABS: CALCIUM, SERUM 8.2 mg/dL (8.5-10.1); CREATININE 1.9 mg/dL (0.6-1.3); POTASSIUM 3.7 mmol/L (3.5-5.1)
[2018-05-31 05:20] LABS: THYROID STIMULATING HORMONE 2.463 uIU/mL (0.358-3.74)
[2018-05-31] MEDS: METOCLOPRAMIDE HCL 10 MG TABLET GT SCH ×3 (05:30→20:08)
[2018-05-31] MEDS: BLOOD SUGAR DIAGNOSTIC 1 EACH STRIP IN SCH ×4 (05:30→23:24)
[2018-05-31] MEDS: INSULIN REGULAR, HUMAN 100 UNIT/ML 3 ML VIAL SQ PRN ×3 (05:34→23:26)
[2018-05-31] MEDS: PIPERACILLIN /TAZOBACTAM 3.375 G in IV D5W 50 ML IV SCH ×4 (05:37→23:17)
[2018-05-31] MEDS ORDERED: VANCOMYCIN 0.75 GM in IV D5W 250 ML IV SCH (08:00)
--- NOTE | 2018-05-31 08:27 | NUR ---
received pt from day shift, sedated on Diprivan at 30mcg, SR, receiving levo at 4mcg, on the vent, lungs congested, pitting edema throughout, GT to feeding, tolerates well, f/c low output, v/s stable, no pain, pt turned and repositioned.
[2018-05-31] MEDS: FLUCONAZOLE (100 MG) 100 MG TABLET PO SCH (08:46)
[2018-05-31] MEDS: HYDROGEL DRESSING 90 GM TUBE TP SCH (08:47)
[2018-05-31] MEDS: IV D5/ 0.9% NACL 1,000 ML IV PRN (10:46)
[2018-05-31] MEDS: NOREPINEPHRINE 8 MG in IV D5W 500 ML IV PRN (11:16)
--- NOTE | 2018-05-31 12:00 | NUR ---
pt resting in the bed, v/s stable, no pain, pt turned and repositioned q2hrs.
[2018-05-31] MEDS: PANTOPRAZOLE 40 MG VIAL IV SCH (13:06)
--- NOTE | 2018-05-31 16:26 | NUR ---
pt is resting in the bed, sedated on Diprivan at 30mcg, receiving levo at 5mcg, SR, tolerates feeding, v/s stable, no pain, pt cleaned, changed and repositioned q2hrs.
--- NOTE | 2018-05-31 19:30 | NUR ---
CARGO WORKER INITIAL NOTES RECEIVED PATIENT IN BED, ASLEEP/EYES CLOSED, SEDATED ON DIPRIVAN, CURRENTLY @ 30MCG. TRACH MIDLINE AND INTACT, ON MECHANICAL VENTILATOR AT PRESCRIBED SETTINGS, TOELRATING WELL, FREE FROM ANY S/S OF RESPIRATORY DISTRESS. ON TELEMETRY MONITORING, REVEALING SINUS RHYTHM, HR = 83 BPM. PATITO PICC PATENT AND INTACT, ALL PORTS FLUSHED WITH NS, IVF INFUSING PRESCRIBED. PATIENT ALSO ON LEVOPHED @ 5MCG FOR BP SUPPORT. SIU CATHETER PATENT AND INTACT, MINIMAL URINE OUTPUT NOTED. GTUBE PATENT AND INTACT, WITH TUBE FEEDING ONGOING AT 40CC/HR, 10 ML OF GASTRIC RESIDUALS NOTED AT THIS TIME. CALL LIGHT WITHIN EASY REACH, BED IN LOWEST AND LOCKED POSITION. WILL CONTINUE TO CLOSELY MONITOR
[2018-06-01] VITALS (102 sets, daily range): BP systolic 51–132; BP diastolic 28–69
--- NOTE | 2018-06-01 01:00 | NUR ---
INCREASED FIO2 TO 75%, PT BEGAN TO DESAT ON PREVIOUS SETTINGS WILL CONTINUE TO MONITOR, AND TITRATE FIO2 TOLERATED Addendum: 06/01/18 at 0101 by SULY HICKS RT Amended: Links added.
[2018-06-01] MEDS: PROPOFOL 100 ML IV PRN ×6 (03:51→21:32)
[2018-06-01 04:55] LABS: CALCIUM, SERUM 8.9 mg/dL (8.5-10.1)
[2018-06-01] MEDS: BLOOD SUGAR DIAGNOSTIC 1 EACH STRIP IN SCH ×4 (05:13→23:41)
[2018-06-01] MEDS: METOCLOPRAMIDE HCL 10 MG TABLET GT SCH ×3 (05:13→20:42)
[2018-06-01] MEDS: PIPERACILLIN /TAZOBACTAM 3.375 G in IV D5W 50 ML IV SCH ×3 (05:13→17:21)
[2018-06-01] MEDS: INSULIN REGULAR, HUMAN 100 UNIT/ML 3 ML VIAL SQ PRN ×4 (05:15→23:43)
--- NOTE | 2018-06-01 06:57 | NUR ---
SEALS ENGRAVER CLOSING NOTES PATIENT RESTING IN BED, CONTINUES ON DIPRIVAN @ 30MCG, LEVOPHED @ 5MCG. FIO2 TITRATED DOWN TO 60%. WILL ENDORSE THE PATIENT TO THE AM SHIFT NURSE FOR CONTINUITY OF CARE
[2018-06-01] MEDS ORDERED: VANCOMYCIN 0.75 GM in IV D5W 250 ML IV SCH (08:00)
[2018-06-01 08:24] LABS: BASOPHILS % (AUTO) 0.2 % (0.0-2.0); HEMATOCRIT 29 % (33-45); HEMOGLOBIN 9.3 g/dL (11.5-14.8); LYMPHOCYTES # (AUTO) 1.7 /CMM (0.8-4.8); MEAN CORPUSCULAR HEMOGLOBIN 27 PG (26.0-33.0); MEAN CORPUSCULAR HGB CONC 32 g/dl (31.0-36.0); MEAN CORPUSCULAR VOLUME 84 fL (82-100); MONOCYTES # (AUTO) 2.1 /CMM (0.1-1.30); MONOCYTES % (AUTO) 9.9 % (2.0-12.0); NEUTROPHILS # (AUTO) 14.8 /CMM (1.8-8.9); NEUTROPHILS % (AUTO) 69.9 % (43.0-81.0); PLATELET COUNT (AUTO) 97 /CMM (150-450); RDW COEFFICIENT OF VARIATION 20.4 (11.5-15.0); RED BLOOD CELL COUNT(AUTO) 3.42 MIL/uL (4.0-5.2); WHITE BLOOD COUNT (AUTO) 21.2 K/uL (4.3-11.0)
--- NOTE | 2018-06-01 08:37 | NUR ---
received pt from day shift, sedated on Diprivan at 30mcg, SR, receiving levo at 4mcg, on the vent, lungs congested, pitting edema throughout, GT to feeding tolerates well, f/c low output, v/s stable, no pain, pt turned and repositioned.
[2018-06-01] MEDS: HYDROGEL DRESSING 90 GM TUBE TP SCH (08:42)
[2018-06-01] MEDS: FLUCONAZOLE (100 MG) 100 MG TABLET PO SCH (08:42)
[2018-06-01 08:48] LABS: BAND % (MANUAL) 1 % (0.0-5.0); EOSINOPHILS % (MANUAL) 18 % (0-4); LYMPHOCYTES % (MANUAL) 11 % (16-48); MONOCYTES % (MANUAL) 9 % (0-11.0); NEUTROPHILS % (MANUAL) 61 (42-76)
[2018-06-01] MEDS: IV D5/ 0.9% NACL 1,000 ML IV PRN (09:03)
[2018-06-01] MEDS: NOREPINEPHRINE 8 MG in IV D5W 500 ML IV PRN (09:07)
[2018-06-01 10:15] LABS: ABG BASE EXCESS -6.4 mmol/L; ABG OXYGEN SATURATION 87.4 % (92.0-98.5); ABG PCO2 37.9 mmHg (35.0-45.0); ABG PO2 56.1 mmHg (75.0-100.0); COHb 0.5 % (0.5-1.5); MetHb 0.7 % (0.0-1.5); O2Hb 86.4 % (94.0-97.0); PEEP,BG 10 cm H2O; SITE, ABG Right Brachial; VT, ABG 400 mL
--- NOTE | 2018-06-01 11:47 | NUR ---
PT ON TRACHED PTX 7 ON VENT. NO RESP DISTRESS NOTED. PT TOLERATING VENT SETTINGS. SX'D FOR MOD AMT OF THICK WHITE SECRETIONS. VENT ALARMS SET AND AUDIBLE. AMBU BAG AT BEDSIDE. VENT PLUGGED INTO RED OUTLET.
--- NOTE | 2018-06-01 12:23 | NUR ---
pt is resting in the bed, v/s stable, no pain, pt turned and repositioned q2hrs.
[2018-06-01] MEDS: PANTOPRAZOLE 40 MG VIAL IV SCH (12:36)
[2018-06-01 15:04] LABS: ABG OXYGEN SATURATION 70.6 % (92.0-98.5); ABG PCO2 40.6 mmHg (35.0-45.0); ABG PH 7.324 (7.350-7.450); ABG PO2 39.5 mmHg (75.0-100.0); AaDO2 271.3 mmHg; COHb 1.3 % (0.5-1.5); MetHb 0.7 % (0.0-1.5); O2Hb 69.2 % (94.0-97.0); SITE, ABG Left Brachial; VENT MODE, BG non rebreather
--- NOTE | 2018-06-01 16:28 | NUR ---
pt is resting in the bed, sedated on Diprivan at 75mcg for RR control, SR, receiving levo at 9mcg, tolerates feeding, v/s stable, no pain, pt cleaned, changed and repositioned q2hrs.
--- NOTE | 2018-06-01 20:00 | NUR ---
internal controls consultant - notes - received pt sedated on Diprivan SR, receiving levo at 9 mcg, on the vent, pitting edema throughout, GT to feeding tolerates well, f/c low output, v/s stable, no pain, pt turned and repositioned.
--- NOTE | 2018-06-01 20:05 | NUR ---
pt temp 93 via rectal temp probe, cady hugger applied, will continue to monitor
[2018-06-01] MEDS: MEROPENEM 500 MG in IV NS 0.9% 50 ML IV SCH (20:41)
[2018-06-02] VITALS (92 sets, daily range): BP systolic 47–131; BP diastolic 16–68
[2018-06-02] MEDS: NOREPINEPHRINE 8 MG in IV D5W 500 ML IV PRN ×2 (00:27→08:44)
[2018-06-02] MEDS: PROPOFOL 100 ML IV PRN ×6 (01:28→21:02)
[2018-06-02 04:55] LABS: EOSINOPHILS % (AUTO) 12.5 % (0.0-6.0); HEMATOCRIT 28 % (33-45); HEMOGLOBIN 8.8 g/dL (11.5-14.8); LYMPHOCYTES # (AUTO) 1.4 /CMM (0.8-4.8); LYMPHOCYTES % (AUTO) 5.8 % (20.0-44.0); MEAN CORPUSCULAR HEMOGLOBIN 27 PG (26.0-33.0); MEAN CORPUSCULAR HGB CONC 32 g/dl (31.0-36.0); MEAN CORPUSCULAR VOLUME 85 fL (82-100); MONOCYTES # (AUTO) 1.8 /CMM (0.1-1.30); MONOCYTES % (AUTO) 7.1 % (2.0-12.0); NEUTROPHILS # (AUTO) 18.4 /CMM (1.8-8.9); NEUTROPHILS % (AUTO) 74.6 % (43.0-81.0); PLATELET COUNT (AUTO) 112 /CMM (150-450); RED BLOOD CELL COUNT(AUTO) 3.25 MIL/uL (4.0-5.2); WHITE BLOOD COUNT (AUTO) 24.7 K/uL (4.3-11.0)
[2018-06-02 05:11] LABS: CALCIUM, SERUM 8.7 mg/dL (8.5-10.1); CREATININE 2.2 mg/dL (0.6-1.3)
[2018-06-02] MEDS: BLOOD SUGAR DIAGNOSTIC 1 EACH STRIP IN SCH ×4 (05:54→23:10)
[2018-06-02] MEDS: METOCLOPRAMIDE HCL 10 MG TABLET GT SCH ×3 (05:54→20:28)
[2018-06-02] MEDS: INSULIN REGULAR, HUMAN 100 UNIT/ML 3 ML VIAL SQ PRN ×4 (05:55→23:13)
[2018-06-02 05:58] LABS: BAND % (MANUAL) 3 % (0.0-5.0); EOSINOPHILS % (MANUAL) 12 % (0-4); LYMPHOCYTES % (MANUAL) 8 % (16-48); MONOCYTES % (MANUAL) 16 % (0-11.0); NEUTROPHILS % (MANUAL) 61 (42-76)
[2018-06-02] MEDS ORDERED: VANCOMYCIN 0.75 GM in IV D5W 250 ML IV SCH (06:00)
[2018-06-02] MEDS: IV D5/ 0.9% NACL 1,000 ML IV PRN (07:06)
[2018-06-02] MEDS: FLUCONAZOLE (100 MG) 100 MG TABLET PO SCH (08:11)
[2018-06-02] MEDS: HYDROGEL DRESSING 90 GM TUBE TP SCH (08:11)
[2018-06-02] MEDS: MEROPENEM 500 MG in IV NS 0.9% 50 ML IV SCH ×2 (08:11→20:28)
--- NOTE | 2018-06-02 08:35 | NUR ---
received pt from day shift, sedated on diprivan at 50mcg, SR, receiving levo at 12mcg, on the vent, lungs congested, pitting/non pitting edema throughout, f/c low output, tolerates feeding, v/s stable, no pain, pt turned and repositioned. increased Diprivan to 75mcg to keep RR < 25, per MD.
[2018-06-02] MEDS ORDERED: NOREPINEPHRINE 16 MG in IV D5W 500 ML IV PRN (09:30)
[2018-06-02] MEDS: PANTOPRAZOLE 40 MG VIAL IV SCH (12:03)
--- NOTE | 2018-06-02 16:20 | NUR ---
pt is resting in the bed, sedated on Diprivan at 50 mcg, SR, ST, receiving levo at 20mcg, low urine output MD aware, v/s stable, no pain, pt cleaned, changed and repositioned q2hrs.
--- NOTE | 2018-06-02 19:36 | NUR ---
SURFACING TECHNICIAN. INITIAL ASSESSMENT. RECEIVED THE PT REST ON THE BED. TRACH TO VENT CONNECTED. PT IS OBTUNDED. PORTEX #7,AC 10TV 400, FIO2 80%. PEEP 10. SAT 98%. FLOOR WINDER SHOWING S TACH. RATE IS 103. IV RT UPPER ARM PICC [employer] [place] IVF D5NS 50ML/H,DIPRIVAN 50MCG/KG/MIN. LEVOPHED 22MCG/MIN. GT INTACT. OSMOLYTE 40ML/H. HOB ELEVATED. WILL CONTINUE TO MONITOR VITALS.
[2018-06-03] VITALS (55 sets, daily range): BP systolic 52–148; BP diastolic 38–61
[2018-06-03] MEDS ORDERED: NOREPINEPHRINE 4 MG/4 ML AMPUL IV ONE (00:08)
[2018-06-03] MEDS: PROPOFOL 100 ML IV PRN ×5 (01:14→20:44)
[2018-06-03] MEDS: NOREPINEPHRINE 16 MG in IV D5W 500 ML IV PRN ×2 (01:14→15:32)
--- NOTE | 2018-06-03 04:00 | NUR ---
BOX SPRING MAKER. AM CARE, ORAL CARE, BED BATH GIVEN. LINEN CHANGED, REMAINING SAME VENT SETTING ON, IV RT UPPER ARM PICC LINE IVF D5NS 50ML/H, DIPRIVAN 50MCG/KG/MIN,LEVOPHED 24MCG/MIN. GT CLAMPED. RESIDUAL 200ML. FC PATENT. HOB ELEVATED, TURN AND REPOSITION Q2H. WILL CONTINUE TO MONITOR VITALS.
[2018-06-03] MEDS: METOCLOPRAMIDE HCL 10 MG TABLET GT SCH ×3 (04:18→21:54)
[2018-06-03] MEDS: IV D5/ 0.9% NACL 1,000 ML IV PRN (04:19)
--- NOTE | 2018-06-03 04:29 | NUR ---
LPN CARE MANAGERGabrielle MILTON NP ORDERED. CVP MONITORING. CONNECTED TO THE PICC LINE. ZERO CALIBRATED.
--- NOTE | 2018-06-03 04:31 | NUR ---
PRIVATE DUTY RN, GT FEEDING HELD. RESIDUAL 200 ML.
[2018-06-03 05:15] LABS: EOSINOPHILS % (AUTO) 8.1 % (0.0-6.0); HEMATOCRIT 26 % (33-45); HEMOGLOBIN 8.6 g/dL (11.5-14.8); LYMPHOCYTES % (AUTO) 5.9 % (20.0-44.0); MEAN CORPUSCULAR HEMOGLOBIN 27 PG (26.0-33.0); MEAN CORPUSCULAR HGB CONC 33 g/dl (31.0-36.0); MEAN CORPUSCULAR VOLUME 84 fL (82-100); MONOCYTES # (AUTO) 2.1 /CMM (0.1-1.30); MONOCYTES % (AUTO) 6.2 % (2.0-12.0); NEUTROPHILS % (AUTO) 79.8 % (43.0-81.0); PLATELET COUNT (AUTO) 116 /CMM (150-450); RDW COEFFICIENT OF VARIATION 20.4 (11.5-15.0); RED BLOOD CELL COUNT(AUTO) 3.15 MIL/uL (4.0-5.2)
[2018-06-03] MEDS: BLOOD SUGAR DIAGNOSTIC 1 EACH STRIP IN SCH ×3 (05:18→17:46)
[2018-06-03] MEDS: INSULIN REGULAR, HUMAN 100 UNIT/ML 3 ML VIAL SQ PRN ×3 (05:19→17:45)
[2018-06-03 05:30] LABS: WHITE BLOOD COUNT (AUTO) 33.8 K/uL (4.3-11.0)
[2018-06-03 05:31] LABS: CALCIUM, SERUM 8.5 mg/dL (8.5-10.1); CREATININE 2.6 mg/dL (0.6-1.3); POTASSIUM 4.9 mmol/L (3.5-5.1)
[2018-06-03 05:39] LABS: BAND % (MANUAL) 9 % (0.0-5.0); EOSINOPHILS % (MANUAL) 8 % (0-4); LYMPHOCYTES % (MANUAL) 8 % (16-48); METAMYELOCYTES % 4 % (0-0); MONOCYTES % (MANUAL) 9 % (0-11.0); MYELOCYTES % 3 % (0-0); NEUTROPHILS % (MANUAL) 59 (42-76)
--- NOTE | 2018-06-03 06:54 | NUR ---
BOTTLE HOUSE CLEANERS SUPERVISOR. PT GETTING IVF D5NS 50ML/H. KARINE HO MADE AWARE, CVP MONITORING ORDERED.
[2018-06-03] MEDS ORDERED: VANCOMYCIN 0.75 GM in IV D5W 250 ML IV SCH (08:00)
--- NOTE | 2018-06-03 08:00 | NUR ---
EXPANDER: pt.is sedated with 50 mcg/kg/min Diprivan, weak reactive by deep pain stimuli, will titrate sedation, SR, on Levophed gtt 22 mcg/min now, SBP over 100 last hrs/continue titrate down, general edema +2/3, getting D5NS@50ml/h, Na 129, CVP 22-24/MD, MERCANTILE REPORTER are aware by report, O2sat. over 96% now, FiO2 80%, peep10, suctioned well with thick secretion, GTF was on hold over night since 22.00 d/t high residual, now residual is 30ml, resumed GTF, keep HOB over 45, continue monitoring, low urine output/100ml per night, PMD is aware by report, wound care is done by report, abdomen is distended, soft, last BM on 06/02 by comp.data, no use L.arm for BP, blood drown d/t DVT history, WBC 33/up
[2018-06-03] MEDS: FLUCONAZOLE (100 MG) 100 MG TABLET PO SCH (09:11)
[2018-06-03] MEDS: Z GUARD REMEDY 2 OZ OINT TP PRN (09:12)
[2018-06-03] MEDS: HYDROGEL DRESSING 90 GM TUBE TP SCH (09:12)
[2018-06-03] MEDS: HYDROGEL DRESSING 90 GM TUBE TP PRN (09:12)
[2018-06-03] MEDS: MEROPENEM 500 MG in IV NS 0.9% 50 ML IV SCH ×2 (09:13→21:54)
--- NOTE | 2018-06-03 10:30 | NUR ---
VENDING SUPERVISOR: is in room, updated with pt.VS, sedation level, Levophed gtt, O2sat., vent setting, CVP, suction amount, GTF high residual episodes, low urine output, IVF, labs, ordered: ABG
[2018-06-03 11:34] LABS: ABG BASE EXCESS -9.4 mmol/L; ABG OXYGEN SATURATION 85.2 % (92.0-98.5); ABG PCO2 41.3 mmHg (35.0-45.0); ABG PH 7.241 (7.350-7.450); ABG PO2 53.2 mmHg (75.0-100.0); AaDO2 473.8 mmHg; COHb 0.6 % (0.5-1.5); MetHb 0.9 % (0.0-1.5); O2Hb 83.9 % (94.0-97.0); PEEP,BG 10 cm H2O; SITE, ABG Right Radial; VT, ABG 400 mL
--- NOTE | 2018-06-03 13:00 | NUR ---
BUTTON CUTTING MACHINE OPERATOR: was in unit/updated by charge nurse re: pt.current condition, sedation level, VS, Levophed gtt rate, edema level, no urine output (30ml only since 0800), I/O, IVF (D5NS@50ml/h), high GT residual, BS, CVP 22-24, said: check albumin level if below 1.0 replace by pharmacy, continue same IVF
[2018-06-03] MEDS: PANTOPRAZOLE 40 MG VIAL IV SCH (13:56)
--- NOTE | 2018-06-03 14:00 | NUR ---
FOOT PIECE ASSEMBLER: GT residual 1500ml, hold GTF
--- NOTE | 2018-06-03 14:00 | NUR ---
DIE CASTING MACHINE SETTER: increased FiO2 to 100%, ordered lactic acid
--- NOTE | 2018-06-03 14:15 | NUR ---
CHILLER HAND: albumin level 1.0, ordered: Albumin IV 25%-100ml q6h d9bgdab, Lasix 40mg IV one dose after first dose
[2018-06-03] MEDS: ALBUMIN 25% 25 GM in PREMIX 1 EA IV SCH ×2 (15:19→21:55)
[2018-06-03] MEDS ORDERED: FUROSEMIDE 40 MG/4 ML VIAL IV ONE (16:30)
--- NOTE | 2018-06-03 17:10 | NUR ---
CLAIM MANAGER: pt.is sedated well with 40 mcg/kg/m Diprivan, Levophed 14 mcg/m now, SR, SBO over 90 now, O2 sat. over 96% on FiO2 100%, suctioned well, resumed GTF, keep HOB over 45, 0-ed CVP monitorin now, anuric now, lactic acid 0.8, PM/skin/wound care done, Becka FREEMAN is in room, updated with all above
--- NOTE | 2018-06-03 20:09 | NUR ---
BOUNTY TRAPPER. RECEIVED THE PT REST ON THE BED. TRACH TO VENT CONNECTED. PORTEX#7,AC 10TV 400,FIO2 100%,PEEP 10. SAT 98%. DANDY TENDER SHOWING NSR. IV RT UPPER ARM PICC LINE IVF D5NS 50ML/H,DIPRIVAN 40MCG/KG/MIN,LEVOPHED 14MCG/MIN,GT CLAMPED. RESIDUAL 200ML. FC PATENT. HOB ELEVATED,WILL CONTINUE TO MONITOR.
--- NOTE | 2018-06-03 21:19 | NUR ---
HEATER OPERATOR. GT RESIDUAL 200ML.MD GONZALES MADE AWARE
[2018-06-04] VITALS (61 sets, daily range): BP systolic 104–136; BP diastolic 48–73
[2018-06-04] MEDS: BLOOD SUGAR DIAGNOSTIC 1 EACH STRIP IN SCH ×4 (00:15→18:12)
[2018-06-04] MEDS: INSULIN REGULAR, HUMAN 100 UNIT/ML 3 ML VIAL SQ PRN ×4 (00:16→18:21)
[2018-06-04] MEDS: ALBUMIN 25% 25 GM in PREMIX 1 EA IV SCH ×2 (04:22→09:19)
--- NOTE | 2018-06-04 04:31 | NUR ---
BEZEL CUTTER. AM CARE, ORAL CARE, BED BATH GIVEN. LINEN CHANGED. REMAINING SAME VENT SETTING ON. AUTOMOTIVE WHOLESALE PARTS ADVISOR SHOWING NSR. IV RT UPPER ARM PICC LINE IVF D5NS 50ML/H,DIPRIVAN 40MCG/KG/MIN,LEVOPHED 14MCG/MIN. GT CLAMPED, HOB ELEVATED. FC PATENT. NO URINE OUT PUT. GT FEEDING NOT TOLERATED WELL.TURN AND REPOSITION Q2H. WILL CONTINUE TO MONITOR VITALS.
[2018-06-04 05:36] LABS: BASOPHILS % (AUTO) 0.1 % (0.0-2.0); EOSINOPHILS % (AUTO) 4.1 % (0.0-6.0); HEMATOCRIT 26 % (33-45); HEMOGLOBIN 8.3 g/dL (11.5-14.8); LYMPHOCYTES # (AUTO) 1.8 /CMM (0.8-4.8); MEAN CORPUSCULAR HEMOGLOBIN 28 PG (26.0-33.0); MEAN CORPUSCULAR HGB CONC 33 g/dl (31.0-36.0); MEAN CORPUSCULAR VOLUME 84 fL (82-100); MONOCYTES # (AUTO) 1.9 /CMM (0.1-1.30); MONOCYTES % (AUTO) 6.2 % (2.0-12.0); NEUTROPHILS # (AUTO) 25.5 /CMM (1.8-8.9); NEUTROPHILS % (AUTO) 83.6 % (43.0-81.0); PLATELET COUNT (AUTO) 116 /CMM (150-450); RDW COEFFICIENT OF VARIATION 21.7 (11.5-15.0); RED BLOOD CELL COUNT(AUTO) 3.03 MIL/uL (4.0-5.2)
[2018-06-04 05:41] LABS: CALCIUM, SERUM 8.6 mg/dL (8.5-10.1); CREATININE 2.9 mg/dL (0.6-1.3)
[2018-06-04 05:42] LABS: WHITE BLOOD COUNT (AUTO) 30.5 K/uL (4.3-11.0)
[2018-06-04 06:08] LABS: BAND % (MANUAL) 3 % (0.0-5.0)
[2018-06-04 06:09] LABS: EOSINOPHILS % (MANUAL) 6 % (0-4); MONOCYTES % (MANUAL) 5 % (0-11.0); NEUTROPHILS % (MANUAL) 82 (42-76)
[2018-06-04 06:10] LABS: LYMPHOCYTES % (MANUAL) 3 % (16-48)
[2018-06-04 06:11] LABS: METAMYELOCYTES % 1 % (0-0)
[2018-06-04] MEDS: IV D5/ 0.9% NACL 1,000 ML IV PRN (06:17)
[2018-06-04] MEDS: METOCLOPRAMIDE HCL 10 MG TABLET GT SCH ×3 (06:17→20:19)
[2018-06-04] MEDS: PROPOFOL 100 ML IV PRN ×3 (06:22→19:27)
--- NOTE | 2018-06-04 07:30 | NUR ---
INITIAL NOTES: RECEIVED THE PT REST ON THE BED. TRACH TO VENT CONNECTED. PORTEX#7,AC 10TV 400,FIO2 100%,PEEP 10. SAT 98%. FREIGHT BRAKEMAN SHOWING NSR WITH PVC'S, CVP 30. IV RT UPPER ARM PICC LINE IVF D5NS 50ML/H,DIPRIVAN 30MCG/KG/MIN,LEVOPHED 14MCG/MIN,GT CLAMPED. RESIDUAL 200ML REPORTED BY LAST TURNER, RN. FC PATENT 5 ML PRESENT. HOB ELEVATED,WILL CONTINUE TO MONITOR.
[2018-06-04] MEDS: VANCOMYCIN 0.75 GM in IV D5W 250 ML IV SCH (09:00)
[2018-06-04] MEDS: FLUCONAZOLE (100 MG) 100 MG TABLET PO SCH (09:19)
[2018-06-04] MEDS: MEROPENEM 500 MG in IV NS 0.9% 50 ML IV SCH ×2 (09:20→20:19)
[2018-06-04] MEDS: HYDROGEL DRESSING 90 GM TUBE TP PRN (09:21)
[2018-06-04] MEDS: HYDROGEL DRESSING 90 GM TUBE TP SCH (09:22)
[2018-06-04] MEDS: NOREPINEPHRINE 16 MG in IV D5W 500 ML IV PRN ×2 (10:49→20:19)
[2018-06-04 12:22] LABS: ABG BASE EXCESS -11.5 mmol/L; ABG PCO2 44.1 mmHg (35.0-45.0); ABG PH 7.181 (7.350-7.450); ABG PO2 102.1 mmHg (75.0-100.0); AaDO2 566.8 mmHg; COHb 0.2 % (0.5-1.5); MetHb 0.7 % (0.0-1.5); O2Hb 95.1 % (94.0-97.0); PEEP,BG 10 cm H2O; SITE, ABG Right Radial; VT, ABG 400 mL
--- NOTE | 2018-06-04 12:30 | NUR ---
DR. JARRETT MADE AWARE OF ABG RESULTS WITH VENT CHANGES ORDERS RECEIVED. RT AWARE AND CHANGES DONE.
--- NOTE | 2018-06-04 13:19 | NUR ---
PIE FILLING MIXER FOLLOW UP PATIENT SEEN AND RIGHT OUTER EAR DTI EVALUATED. THE AREA CONTINUES TO BE INTACT, MEASURES 0.5CM X 0.5CM X UTD. PATIENT CONTINUES TO FAVOR HER RIGHT SIDE. RECOMMEND CONTINUE SAME LOCAL CARE USING MEPILEX CURRENTLY ORDERED. DISCUSSED WITH REPAIRER.
[2018-06-04] MEDS: PANTOPRAZOLE 40 MG VIAL IV SCH (13:31)
[2018-06-04] MEDS: FUROSEMIDE 40 MG/4 ML VIAL IV SCH ×2 (14:16→22:31)
[2018-06-04] MEDS: SODIUM BICARBONATE SYR 150 MEQ in IV D5W 1,000 ML IV PRN (14:48)
[2018-06-04] MEDS: OSMOLITE 1.2 CAL 1,000 ML LIQUID GT PRN (19:27)
--- NOTE | 2018-06-04 19:44 | NUR ---
ETHANOL MAINTENANCE MECHANIC. INITIAL ASSESSMENT. RECEIVED THE PT REST ON THE BED. TRACH TO VENT CONNECTED, PT IS OBTUNDED. PORTEX#7,AC 16,TV 450,FIO2 90%,PEEP 10. SAT 97%. MACHINIST OUTSIDE SHOWING NSR. IV RT UPPER ARM PICC LINE DIPRIVAN 30MCG/KG/MIN,LEVOPHED 14MCG/MIN,IVF D5WIN 3AMP BICARB @ 75ML/H,GT INTACT. OSMOLYTE 10ML/H RESTARTED. FC PATENT. ANURIA, HOB ELEVATED. WILL CONTINUE TO MONITOR VITALS.
[2018-06-04] MEDS: FLUCONAZOLE IN NS 100 MG in PREMIX 1 EA IV SCH ×2 (20:00)
--- NOTE | 2018-06-04 20:12 | NUR ---
RECEIVED PT TRACHED PTX 7 ON VENT. PT TOLERATING VENT SETTINGS. VENT ALARMS SET AND AUDIBLE. SX'D FOR SML AMT OF WHITE SECRETIONS. AMBU BAG AT BEDSIDE. VENT PLUGGED INTO RED OUTLET. WILL CONTINUE TO MONITOR. Addendum: 06/04/18 at 2014 by EVA CUEVAS RT Amended: Links added.
[2018-06-04] MEDS ORDERED: FLUCONAZOLE IN NS 100 ML IV ONE (23:18)
[2018-06-05] VITALS (60 sets, daily range): BP systolic 85–129; BP diastolic 43–70
[2018-06-05] MEDS: BLOOD SUGAR DIAGNOSTIC 1 EACH STRIP IN SCH ×5 (00:19→23:13)
[2018-06-05] MEDS: PROPOFOL 100 ML IV PRN ×4 (01:44→23:02)
--- NOTE | 2018-06-05 03:54 | NUR ---
CLINICAL ENGINEER. AM CARE, ORAL CARE, BED BATH GIVEN. LINEN CHANGED. REMAINING SAME VENT SETTING ON. SAT 98%. DIRECTOR OF EARLY CHILDHOOD EDUCATION SHOWING NSR. IV RT UPPER ARM PICC LINE IVF D5WIN 3 AMP BICARB @75ML/H,DIPRIVAN 30MCG/KG/MIN,LEVOPHED 10MCG/MIN, GT CLAMPED. RESIDUAL 250ML. FC PATENT ANURIA . HOB ELEVATED, TURN AND REPOSITION Q2H. BAGGER HUGGER ON. PT IS UNSTABLE. WILL CONTINUE TO MONITOR VITALS.
[2018-06-05 04:50] LABS: BASOPHILS % (AUTO) 0.1 % (0.0-2.0); EOSINOPHILS % (AUTO) 5.7 % (0.0-6.0); HEMATOCRIT 23 % (33-45); HEMOGLOBIN 7.7 g/dL (11.5-14.8); LYMPHOCYTES # (AUTO) 1.1 /CMM (0.8-4.8); LYMPHOCYTES % (AUTO) 4.2 % (20.0-44.0); MEAN CORPUSCULAR HEMOGLOBIN 28 PG (26.0-33.0); MEAN CORPUSCULAR HGB CONC 34 g/dl (31.0-36.0); MEAN CORPUSCULAR VOLUME 83 fL (82-100); MONOCYTES # (AUTO) 1.3 /CMM (0.1-1.30); MONOCYTES % (AUTO) 5.3 % (2.0-12.0); NEUTROPHILS # (AUTO) 21.4 /CMM (1.8-8.9); NEUTROPHILS % (AUTO) 84.7 % (43.0-81.0); PLATELET COUNT (AUTO) 98 /CMM (150-450); RDW COEFFICIENT OF VARIATION 21.7 (11.5-15.0); RED BLOOD CELL COUNT(AUTO) 2.74 MIL/uL (4.0-5.2); WHITE BLOOD COUNT (AUTO) 25.3 K/uL (4.3-11.0)
[2018-06-05 05:06] LABS: CALCIUM, SERUM 8.1 mg/dL (8.5-10.1); CREATININE 3.1 mg/dL (0.6-1.3); MAGNESIUM 2.2 mg/dL (1.8-2.4); POTASSIUM 4.9 mmol/L (3.5-5.1)
[2018-06-05] MEDS: FUROSEMIDE 40 MG/4 ML VIAL IV SCH ×3 (05:08→21:02)
[2018-06-05] MEDS: METOCLOPRAMIDE HCL 10 MG TABLET GT SCH ×3 (05:08→20:24)
[2018-06-05 05:24] LABS: BAND % (MANUAL) 9 % (0.0-5.0); LYMPHOCYTES % (MANUAL) 2 % (16-48); MONOCYTES % (MANUAL) 5 % (0-11.0); NEUTROPHILS % (MANUAL) 78 (42-76)
[2018-06-05 05:25] LABS: EOSINOPHILS % (MANUAL) 4 % (0-4); METAMYELOCYTES % 1 % (0-0); MYELOCYTES % 1 % (0-0)
[2018-06-05] MEDS: SODIUM BICARBONATE SYR 150 MEQ in IV D5W 1,000 ML IV PRN ×2 (05:33→19:06)
--- NOTE | 2018-06-05 06:01 | NUR ---
ROAD EQUIPMENT OPERATOR. LAB CALLED FOR CRITICAL RESULT PHOSPHORS 9. BALANCE BRIDGE INSPECTOR KARINE MADE AWARE
--- NOTE | 2018-06-05 07:30 | NUR ---
INITIAL NOTES: RECEIVED THE PT REST ON THE BED. TRACH TO VENT CONNECTED. PORTEX#7,AC 16, TV 450,FIO2 90%,PEEP +10. SAT 98%. UNDERWRITING CLERK SHOWING NSR 95, CVP 32. IV RT UPPER ARM PICC LINE TRIPLE LUMEN IVF D5W WITH 150Neq SODIUM BICARBRA 75 ML/HR, DIPRIVAN 40MCG/KG/MIN,LEVOPHED 10MCG/MIN,GT CLAMPED. RESIDUAL 200ML REPORTED BY NUTRITION SERVICES MANAGER, RN. FC PATENT 5 ML PRESENT. HOB ELEVATED,WILL CONTINUE TO MONITOR.
--- NOTE | 2018-06-05 07:52 | NUR ---
PT REC'D ON VENT VIA PORTEX#7 CUFFED TRACH. VENT SETTINGS PER DR. JARRETT, PT'S PIP'S ARE VERY HIGH, ALARMS NEEDED TO BE ADJUSTED. VENT ALARMS ARE SET AND AUDIBLE PER POLICY. PT IS ON 90% FIO2 AND A PEEP OF 10. [place] PRESSURES ARE [id number]. PT IS SEDATED YET STILL TACHYPNEIC. VENT PLUGGED INTO RED OUTLET. AMBU BAG AT HOB. Addendum: 06/05/18 at 0805 by SHAYNA CUNHA RT Amended: Links added.
[2018-06-05] MEDS: MEROPENEM 500 MG in IV NS 0.9% 50 ML IV SCH ×2 (08:51→20:24)
[2018-06-05] MEDS: HYDROGEL DRESSING 90 GM TUBE TP PRN ×2 (08:52→08:53)
[2018-06-05] MEDS: HYDROGEL DRESSING 90 GM TUBE TP SCH (08:54)
[2018-06-05] MEDS: VANCOMYCIN 0.75 GM in IV D5W 250 ML IV SCH (09:00)
[2018-06-05 10:26] LABS: ABG BASE EXCESS -10.4 mmol/L; ABG OXYGEN SATURATION 84.1 % (92.0-98.5); ABG PCO2 35.6 mmHg (35.0-45.0); ABG PH 7.263 (7.350-7.450); ABG PO2 53.9 mmHg (75.0-100.0); AaDO2 551.3 mmHg; COHb 0.2 % (0.5-1.5); MetHb 0.9 % (0.0-1.5); O2Hb 83.2 % (94.0-97.0); SITE, ABG Right Radial
[2018-06-05] MEDS: INSULIN REGULAR, HUMAN 100 UNIT/ML 3 ML VIAL SQ PRN ×3 (12:58→23:14)
[2018-06-05] MEDS: PANTOPRAZOLE 40 MG VIAL IV SCH (13:58)
[2018-06-05] MEDS: NOREPINEPHRINE 16 MG in IV D5W 500 ML IV PRN (18:31)
[2018-06-05] MEDS: FLUCONAZOLE IN NS 100 MG in PREMIX 1 EA IV SCH ×2 (19:06)
[2018-06-05] MEDS: OSMOLITE 1.2 CAL 1,000 ML LIQUID GT PRN (19:24)
--- NOTE | 2018-06-05 19:30 | NUR ---
RN INITIAL NOTES RECEIVED THE PATIENT SEDATED ON BED, WITH DIPRIVAN @ 40MCG/KG/MIN. ON VENT WITH SETTINGS AC 16, TV 450, FIO2 90%, PEEP 12, PORTEX 7, SATURATING WELL, NO S/S OF RESP DISTRESS. CURRENTLY SR ON THE MONITOR, HR 90'S. ON LEVO DRIP @ 12MCG/MIN, ON CVP MONITORING WELL. SIU CATH IS INTACT WITH VERY MINIMAL OUTPUT. GTUBE CLAMPED, NO RESIDUALS, WILL RESTART FEEDING AT A LOW RATE. RIGHT FEMORAL HD CATH INTACT. RIGHT UPPER ARM PICC WITH SODIUM BICARB 150MEQ IN D5W @ 75MLS/HR, FLUSHED AND PATENT, NO S/S OF INFILTRATION/INFECTION, DRESSING CDI. BED LOW AND LOCKED, SIDERAILS UP, BED ALARM ON. WILL MONITOR
--- NOTE | 2018-06-05 20:05 | NUR ---
RECEIVED PT TRACHED PTX 7 ON VENT. PT TOLERATING VENT SETTINGS. VENT ALARMS SET AND AUDIBLE. SX'D FOR SML AMT OF TINGED SECRETIONS. AMBU BAG AT BEDSIDE. VENT PLUGGED INTO RED OUTLET. WILL CONTINUE TO MONITOR. Addendum: 06/05/18 at 2006 by EVA CUEVAS RT Amended: Links added.
[2018-06-05] MEDS: LINEZOLID RTU BAG 600 MG in PREMIX 1 EA IV SCH (21:01)
[2018-06-06] VITALS (95 sets, daily range): BP systolic 78–125; BP diastolic 40–96
[2018-06-06] MEDS: PROPOFOL 100 ML IV PRN ×6 (02:29→21:24)
[2018-06-06 05:03] LABS: EOSINOPHILS % (AUTO) 5.9 % (0.0-6.0); HEMATOCRIT 22 % (33-45); HEMOGLOBIN 7.2 g/dL (11.5-14.8); LYMPHOCYTES # (AUTO) 1.2 /CMM (0.8-4.8); LYMPHOCYTES % (AUTO) 4.3 % (20.0-44.0); MEAN CORPUSCULAR HEMOGLOBIN 28 PG (26.0-33.0); MEAN CORPUSCULAR HGB CONC 34 g/dl (31.0-36.0); MEAN CORPUSCULAR VOLUME 82 fL (82-100); MONOCYTES # (AUTO) 1.8 /CMM (0.1-1.30); NEUTROPHILS # (AUTO) 24.6 /CMM (1.8-8.9); NEUTROPHILS % (AUTO) 83.8 % (43.0-81.0); PLATELET COUNT (AUTO) 104 /CMM (150-450); RDW COEFFICIENT OF VARIATION 22.3 (11.5-15.0); RED BLOOD CELL COUNT(AUTO) 2.61 MIL/uL (4.0-5.2); WHITE BLOOD COUNT (AUTO) 29.3 K/uL (4.3-11.0)
[2018-06-06] MEDS: METOCLOPRAMIDE HCL 10 MG TABLET GT SCH ×3 (05:06→20:15)
[2018-06-06] MEDS: BLOOD SUGAR DIAGNOSTIC 1 EACH STRIP IN SCH ×4 (05:06→23:06)
[2018-06-06] MEDS: FUROSEMIDE 40 MG/4 ML VIAL IV SCH ×3 (05:07→21:56)
[2018-06-06 05:19] LABS: CALCIUM, SERUM 7.4 mg/dL (8.5-10.1); CREATININE 3.2 mg/dL (0.6-1.3); POTASSIUM 4.8 mmol/L (3.5-5.1)
[2018-06-06] MEDS: INSULIN REGULAR, HUMAN 100 UNIT/ML 3 ML VIAL SQ PRN ×4 (05:20→23:07)
[2018-06-06 05:52] LABS: BAND % (MANUAL) 7 % (0.0-5.0); EOSINOPHILS % (MANUAL) 8 % (0-4); LYMPHOCYTES % (MANUAL) 8 % (16-48); MONOCYTES % (MANUAL) 2 % (0-11.0); NEUTROPHILS % (MANUAL) 75 (42-76)
--- NOTE | 2018-06-06 07:20 | NUR ---
RN CLOSING NOTES PT REMAINS STABLE OF THE MOMENT. ALL DUE MEDS GIVEN, AM CARE PROVIDED. WILL ENDORSE HUMBERTO TO AM RN
--- NOTE | 2018-06-06 07:48 | NUR ---
Start of Shift Note Received patient from warehouse worker 2nd shift nurseKenneth. Patient lying in bed yes closed. On vent no sign of respiratory distress. IV fluid running through PICC line.
--- NOTE | 2018-06-06 08:10 | NUR ---
RT PATIENT REC'D TRACHED ON [facility] VENT WITH ORDERED SETTINGS. PATIENT IN CRITICAL CONDITION. VENT ALARMS CHECKED + AUDIBLE. CUFF PRESSURE CHECKED HEAT TREATER HELPER. AMBU BAG AT HOB. Addendum: 06/06/18 at 1343 by KERI GARCIA RT Amended: Links added.
[2018-06-06 08:34] LABS: ABG BASE EXCESS -7.2 mmol/L; ABG OXYGEN SATURATION 70.1 % (92.0-98.5); ABG PCO2 47.2 mmHg (35.0-45.0); ABG PH 7.239 (7.350-7.450); AaDO2 551.3 mmHg; COHb 0.2 % (0.5-1.5); MetHb 1.3 % (0.0-1.5); PEEP,BG 12 cm H2O; SITE, ABG Right Radial; VT, ABG 450 mL
--- NOTE | 2018-06-06 08:44 | NUR ---
Temp 0800: 97.1 0830: 97.4, heating blanket turned off 0845: 97.4, with out heating blanket.
[2018-06-06] MEDS: MEROPENEM 500 MG in IV NS 0.9% 50 ML IV SCH ×2 (08:53→21:06)
[2018-06-06] MEDS: HYDROGEL DRESSING 90 GM TUBE TP SCH (09:00)
[2018-06-06] MEDS: LINEZOLID RTU BAG 600 MG in PREMIX 1 EA IV SCH ×2 (09:13→21:56)
[2018-06-06 11:56] LABS: ABG BASE EXCESS -7.1 mmol/L; ABG OXYGEN SATURATION 91.7 % (92.0-98.5); ABG PCO2 38.6 mmHg (35.0-45.0); ABG PH 7.302 (7.350-7.450); ABG PO2 69.5 mmHg (75.0-100.0); AaDO2 532.6 mmHg; COHb 0.9 % (0.5-1.5); MetHb 0.7 % (0.0-1.5); O2Hb 90.2 % (94.0-97.0); PEEP,BG 12 cm H2O; SITE, ABG A-Line
--- NOTE | 2018-06-06 12:13 | NUR ---
PER DR FELIX ORDER PEEP INCREASED TO 14 Addendum: 06/06/18 at 1213 by KERI GARCIA RT Amended: Links added.
--- NOTE | 2018-06-06 13:00 | NUR ---
Low Temp: Temperature 96.3, started warming blanket (bear hug)
[2018-06-06] MEDS: PANTOPRAZOLE 40 MG VIAL IV SCH (13:07)
[2018-06-06] MEDS: SODIUM BICARBONATE SYR 150 MEQ in IV D5W 1,000 ML IV PRN (14:11)
--- NOTE | 2018-06-06 15:00 | NUR ---
RECEIVED CARE OF PATIENT. PATIENT IN CRITICAL CONDITION. NURIA MONITORING AND CVP. LEVO RUNNING PER SPREADSHEET, DIPROVAN 50MCG/KG/HR AND IVF PER ORDER. PATIENT CENTRAL LINE AND HD CATH INTACT AND PATENT. VENT SETTINGS PER ORDER PATIENT RR 28-[address] JARRETT TO INCREASE DIP. FOELY CATH IN PLACE ANURIC PER RN 7ML SINCE 8AM. PATIENT WHOLE BODY SWOLLEN, EYES SWOLLEN SHUT AND PITTING GENERALIZED. TUBE FEEDING PER ORDER AND NO RESIDUAL NOTED AT THIS TIME. ASPIRATION, SAFETY PRECAUTIONS IN PLACE AND MONITORING. WILL TURN PATIENT TOLERATED BY VS. AT THIS TIME TOO UNSTABLE TO TURN. ON [employer] MATTRESS. RIGHT LEG OFFLOADED AND BUE OFFLOADED. PILLOW PLACED UNDER LEFT HIP TO ASSIST WITH OFFLOADING.
--- NOTE | 2018-06-06 15:30 | NUR ---
Gave report to Joana day shift nurse. Patient is in bed eyes closed. Care endorsed
--- NOTE | 2018-06-06 15:48 | NUR ---
PER DR KOLBY DENIS TO INCREASE MAX DIP TO 100MCG/KG/HR. ORDER UPDATED. PATIENT RR 34 INCREASED DIP PER PROTOCOL.
[2018-06-06] MEDS: Z GUARD REMEDY 2 OZ OINT TP PRN (15:56)
[2018-06-06] MEDS: NOREPINEPHRINE 16 MG in IV D5W 500 ML IV PRN (15:56)
[2018-06-06] MEDS: OSMOLITE 1.2 CAL 1,000 ML LIQUID GT PRN (16:59)
[2018-06-06] MEDS: HYDROGEL DRESSING 90 GM TUBE TP PRN (17:20)
--- NOTE | 2018-06-06 18:44 | NUR ---
BROOK HD RN AT BEDSIDE FOR INITIAL HD. PATIENT BP STABLE AT THIS TIME CONTINUING TO TITRATE LEVO PER PROTOCOL. DIP AT 50MCG/KG/HR AND PATIENT RR STABLE AT 26. IVF PER ORDER; WILL UPDATE ORDER PER DR VALERIO. PATIENT BED BATH COMPLETE WITHOUT COMPLICATIONS. ROBERT FENG ON TEMP 96.7. SIU IN PLACE C/D/I/P FLUSHED. ALL CENTRAL LINES C/D/I. TUBE FEEDING PER ORDER NO RESIDUAL AT THIS TIME. SAFETY, SKIN, AND ASPIRATION PRECAUTIONS IN PLACE. WILL ENDORSE CARE TO YOVANY SOLORIO FOR HUMBERTO.
--- NOTE | 2018-06-06 18:51 | NUR ---
PER DR VALERIO DC IVF BICARB AND START NS AT 50ML/HOUR.
[2018-06-06] MEDS: IV NS 0.9% 1,000 ML IV PRN (19:00)
--- NOTE | 2018-06-06 19:15 | NUR ---
RN INITIAL NOTES RECEIVED THE PATIENT SEDATED ON BED, WITH DIPRIVAN @ 50MCG/KG/MIN. ON VENT WITH SETTINGS AC 16, TV 450, FIO2 90%, PEEP 14, PORTEX 7, SATURATING WELL, NO S/S OF RESP DISTRESS. CURRENTLY SR ON THE MONITOR, HR 80-90'S. ON LEVO DRIP CURRENTLY TITRATING UP DUE TO DIALYSIS. ON CVP AND A-LINE MONITORING WELL. SIU CATH IS INTACT WITH VERY MINIMAL OUTPUT. GTUBE TO OSMOLITE 1.2 @ 40MLS/HR, NO RESIDUALS. RIGHT FEMORAL HD CATH INTACT, CURRENTLY UNDERGOING HD. RIGHT UPPER ARM PICC WITH NS @ 50MLS/HR, FLUSHED AND PATENT, NO S/S OF INFILTRATION/INFECTION, DRESSING CDI. BED LOW AND LOCKED, SIDERAILS UP, BED ALARM ON. WILL MONITOR
--- NOTE | 2018-06-06 19:25 | NUR ---
RN NOTES PATIENT CONVERTED TO AFIB WITH RVR, HR 140-160'S WHILE UNDERGOING HD. STAT EKG ORDERED TO CONFIRM RHYTHM. HD RN NOTIFIED DR IVON PIEDRA IN REGARDS TO PATIENT STATUS. PER MD, HD IS TO BE STOPPED RIGHT NOW.
--- NOTE | 2018-06-06 19:50 | NUR ---
RN NOTES NOTIFIED ON-CALL JITENDRA NELSON OF PATIENT'S UNCONTROLLED AFIB AND SENT HER AN IMAGE OF THE STAT EKG THAT WAS DONE. PER JITENDRA SUBSTITUTE NURSE, SHE ORDERED STAT ALBUMIN LEVEL AND TO MONITOR PATIENT'S HEART RHYTHM TO SEE IF AFIB IS SUSTAINED FOR MORE THAN 20MIN.
[2018-06-06] MEDS: FLUCONAZOLE IN NS 100 MG in PREMIX 1 EA IV SCH ×2 (19:55)
--- NOTE | 2018-06-06 20:28 | NUR ---
RECEIVED PT TRACHED PTX 7 ON VENT. PT TOLERATING VENT SETTINGS. VENT ALARMS SET AND AUDIBLE. SX'D FOR MOD AMT OF TINGED SECRETIONS. AMBU BAG AT BEDSIDE. VENT PLUGGED INTO RED OUTLET. WILL CONTINUE TO MONITOR. Addendum: 06/06/18 at 2028 by EVA CUEVAS RT Amended: Links added.
--- NOTE | 2018-06-06 20:53 | NUR ---
RN NOTES NOTIFIED JITENDRA HO THAT PATIENT HAS BEEN SUSTAINING UNCONTROLLED AFIB FOR MORE THAN 1HOUR. PER JITENDRA HO, SHE WILL PUT IN ORDERS
[2018-06-06] MEDS ORDERED: ALBUMIN 25% 0 ML IV ONE (21:00)
[2018-06-06] MEDS: ALBUMIN 25% 25 GM in PREMIX 1 EA IV SCH ×4 (21:06→23:48)
--- NOTE | 2018-06-06 21:30 | NUR ---
ICU/MUNICIPAL BOND TRADER ALBUMIN 1.4 NOTIFIED RN ABOUT THIS, ALREADY GOT ORDERS TO GIVEN ALBUMIN NOW.
--- NOTE | 2018-06-06 21:47 | NUR ---
RN NOTES NOTIFIED VIC HAM THAT PATIENT CONVERTED TO SR AT 2130
[2018-06-07] VITALS (95 sets, daily range): BP systolic 62–148; BP diastolic 24–76
[2018-06-07] MEDS: PROPOFOL 100 ML IV PRN ×9 (01:10→23:48)
[2018-06-07] MEDS: NOREPINEPHRINE 16 MG in IV D5W 500 ML IV PRN ×2 (04:09→17:41)
[2018-06-07 04:21] LABS: EOSINOPHILS % (AUTO) 5.9 % (0.0-6.0); LYMPHOCYTES # (AUTO) 1.5 /CMM (0.8-4.8); LYMPHOCYTES % (AUTO) 4.9 % (20.0-44.0); MEAN CORPUSCULAR HEMOGLOBIN 28 PG (26.0-33.0); MEAN CORPUSCULAR HGB CONC 34 g/dl (31.0-36.0); MEAN CORPUSCULAR VOLUME 82 fL (82-100); MONOCYTES # (AUTO) 1.5 /CMM (0.1-1.30); NEUTROPHILS # (AUTO) 25.2 /CMM (1.8-8.9); NEUTROPHILS % (AUTO) 84.2 % (43.0-81.0); PLATELET COUNT (AUTO) 99 /CMM (150-450); RDW COEFFICIENT OF VARIATION 21.2 (11.5-15.0); RED BLOOD CELL COUNT(AUTO) 2.36 MIL/uL (4.0-5.2); WHITE BLOOD COUNT (AUTO) 29.9 K/uL (4.3-11.0)
[2018-06-07 04:30] LABS: CREATININE 3.2 mg/dL (0.6-1.3); HEMATOCRIT 19 % (33-45); HEMOGLOBIN 6.5 g/dL (11.5-14.8); POTASSIUM 4.9 mmol/L (3.5-5.1)
[2018-06-07 04:51] LABS: BAND % (MANUAL) 6 % (0.0-5.0); NEUTROPHILS % (MANUAL) 73 (42-76)
[2018-06-07 04:52] LABS: EOSINOPHILS % (MANUAL) 8 % (0-4); LYMPHOCYTES % (MANUAL) 3 % (16-48); METAMYELOCYTES % 3 % (0-0); MONOCYTES % (MANUAL) 5 % (0-11.0); MYELOCYTES % 2 % (0-0)
[2018-06-07] MEDS: BLOOD SUGAR DIAGNOSTIC 1 EACH STRIP IN SCH ×3 (05:25→17:41)
[2018-06-07] MEDS: METOCLOPRAMIDE HCL 10 MG TABLET GT SCH ×3 (05:26→22:10)
[2018-06-07] MEDS: FUROSEMIDE 40 MG/4 ML VIAL IV SCH ×3 (05:26→22:10)
[2018-06-07] MEDS: INSULIN REGULAR, HUMAN 100 UNIT/ML 3 ML VIAL SQ PRN ×3 (05:27→17:59)
--- NOTE | 2018-06-07 06:15 | NUR ---
RN CLOSING NOTES PT REMAINS STABLE OF THE MOMENT. ALL DUE MEDS GIVEN, AM CARE PROVIDED. WILL ENDORSE HUMBERTO TO AM RN
--- NOTE | 2018-06-07 06:25 | NUR ---
RN NOTES PER NURSE TRANSITIONAL JITENDRA, TRANSFUSE 2 UNITS PRBC PER STANDING ORDER WITH HD FOR CURRENT HGB 6.5, HCT 19
--- NOTE | 2018-06-07 07:00 | NUR ---
RECEIVED CARE OF PATIENT. PATIENT IN CRITICAL CONDITION. NURIA MONITORING AND CVP. LEVO RUNNING PER SPREADSHEET, DIPROVAN 50MCG/KG/HR AND IVF PER ORDER. PATIENT CENTRAL LINE AND HD CATH INTACT AND PATENT. PATIENT HAS COPIOUS AMOUNTS OF SERIOUS FLUID COMING FROM PREVIOUS INSERTION ATTEMPTS; NO BLEEDING NOTED. ABD PAD PLACED.VENT SETTINGS PER ORDER PATIENT TACHYPNEIC WILL INCREASE PER ORDER FOR IMPROVED VENTILATION. SIU CATH IN PLACE ANURIC. PATIENT WHOLE BODY SWOLLEN, EYES SWOLLEN SHUT AND PITTING GENERALIZED. TUBE FEEDING PER ORDER AND 35ML RESIDUAL NOTED HOLDING AND WILL RECHECK RESIDUAL. ASPIRATION, SAFETY PRECAUTIONS IN PLACE AND MONITORING. WILL TURN PATIENT TOLERATED BY VS.
[2018-06-07] MEDS: Z GUARD REMEDY 2 OZ OINT TP PRN (08:04)
[2018-06-07] MEDS: HYDROGEL DRESSING 90 GM TUBE TP SCH (08:04)
[2018-06-07] MEDS: MEROPENEM 500 MG in IV NS 0.9% 50 ML IV SCH ×2 (08:05→20:52)
--- NOTE | 2018-06-07 09:00 | NUR ---
DR JARRETT AT BEDSIDE. UPDATED MD ON PATIENT. UNABLE TO TOLERATE HD LAST NIGHT AFIB RVR NOW BACK TO NSR. HGB 6.5 NEEDING 2 UNITS PRBC WITH HD TODAY IF TOLERATE. OXYGEN SAT LOWER TODAY 92-94% PER MD OBTAIN ABG TODAY. MD CHASE CONNELL NEEDS INCREASING S/T TACHYPNEA PER MD OK TO NOT COMPLETE SEDATION VACATION PATIENT RR INCREASES. PER MD SENAIT CONNELL AT 100MCG MAX OK TO START MORPHINE SULFATE DRIP AT 5MG/HR AND TITRATE TO MAX 15MG/HOUR TO KEEP RR STABLE.
--- NOTE | 2018-06-07 09:30 | NUR ---
PER DR JARRETT MORPHINE DRIP TO KEEP RR AT 25 OR BELOW. CHANGE AC TO 20. HD IN PROGRESS. PICKING UP BLOOD FOR HD RN TO INFUSE.
[2018-06-07] MEDS ORDERED: ALBUMIN 25% 25 GM in PREMIX 1 EA IV ONE (10:00)
--- NOTE | 2018-06-07 10:02 | NUR ---
1ST UNIT PRBC HUNG.
--- NOTE | 2018-06-07 10:30 | NUR ---
HD STOPPED PER DR VALERIO. PATIENT AFIB RVR UP TO 160'S. 1 UNIT PRBC COMPLETED. NO OUTPUT FROM HD
--- NOTE | 2018-06-07 10:50 | NUR ---
ROSSY CAMARILLO CALLED. RHYTHM PRESENT NO PULSE WHEN CHECKED WITH DOPPLER. 1051 1ST ROUND OF EPI GIVEN 1053 PULSES RETURNED. PATIENT AFIB CONTROLLED 85. BLOOD PRESSURE 140/74 NURIA. TEMP 97.4 CORE. RR 30. OXYGEN SATURATION 85%. 1055 OXYGEN SATURATION 94%. DR FABIAN AND DR JARRETT AT BEDSIDE FOR ROSSY CAMARILLO.
--- NOTE | 2018-06-07 11:00 | NUR ---
per dr celso mckeon to wait until 2pm cbc to determine if a second blood transfusion is needed. no s/s active bleeding.
--- NOTE | 2018-06-07 11:25 | NUR ---
DR FABIAN SPOKE WITH FAMILY. PER FAMILY DNR STATUS.
[2018-06-07] MEDS: LINEZOLID RTU BAG 600 MG in PREMIX 1 EA IV SCH ×2 (11:28→22:10)
--- NOTE | 2018-06-07 11:43 | NUR ---
JAMES spoke to pt's RN Jamari and received the correct family contact for the pt. Mónica (niece) . JAMES updated disability case manager Shannan with the correct phone number and contact. Addendum: 06/07/18 at 1149 by JASPAL RAMIREZ JAMES received a voicemail from Tiara from the [facility] [facility] office requesting for family contact information. JAMES called Tiara and left her the contact name and phone number for the pt's family member Mónica.
[2018-06-07] MEDS ORDERED: EPINEPHRINE (1:10,000) SYRINGE 1 MG/10 ML DISP.SYRIN IVP ONE (11:49)
[2018-06-07] MEDS ORDERED: FEE EMEERGENCY 1 MIN EA MC ONE (11:49)
[2018-06-07] MEDS: PANTOPRAZOLE 40 MG VIAL IV SCH (12:01)
[2018-06-07 14:28] LABS: EOSINOPHILS % (AUTO) 3.7 % (0.0-6.0); HEMATOCRIT 25 % (33-45); HEMOGLOBIN 8.2 g/dL (11.5-14.8); LYMPHOCYTES # (AUTO) 1.6 /CMM (0.8-4.8); MEAN CORPUSCULAR HEMOGLOBIN 28 PG (26.0-33.0); MEAN CORPUSCULAR HGB CONC 33 g/dl (31.0-36.0); MEAN CORPUSCULAR VOLUME 84 fL (82-100); MONOCYTES % (AUTO) 5.1 % (2.0-12.0); NEUTROPHILS # (AUTO) 34.1 /CMM (1.8-8.9); NEUTROPHILS % (AUTO) 87.2 % (43.0-81.0); PLATELET COUNT (AUTO) 112 /CMM (150-450); RDW COEFFICIENT OF VARIATION 20.2 (11.5-15.0); RED BLOOD CELL COUNT(AUTO) 2.98 MIL/uL (4.0-5.2)
[2018-06-07 14:50] LABS: WHITE BLOOD COUNT (AUTO) 39.1 K/uL (4.3-11.0)
[2018-06-07 15:09] LABS: BAND % (MANUAL) 7 % (0.0-5.0); EOSINOPHILS % (MANUAL) 3 % (0-4); LYMPHOCYTES % (MANUAL) 8 % (16-48); METAMYELOCYTES % 2 % (0-0); MONOCYTES % (MANUAL) 5 % (0-11.0); MYELOCYTES % 2 % (0-0); NEUTROPHILS % (MANUAL) 73 (42-76)
--- NOTE | 2018-06-07 15:53 | NUR ---
RT PT RECEIVED TRACHED WITH A PORTEX 7 CUFFED ON THE VENT WITH NOTED SETTINGS. PT DOES NOT FOLLOW COMMANDS. VENT ALARMS ARE SET AND AUDIBLE WITH BVM BY BEDSIDE. POWER GENERATION TECHNICIAN CUFF PRESSURE NOTED. VENT IS PLUGGED INTO RED OUTLET. PT SX'D MODERATE BLOOD TINGED SECRETIONS, WILL CONTINUE TO MONITOR. Addendum: 06/07/18 at 1556 by NERI SOUZA RT Amended: Links added.
[2018-06-07] MEDS: IV NS 0.9% 1,000 ML IV PRN (17:42)
[2018-06-07] MEDS: OSMOLITE 1.2 CAL 1,000 ML LIQUID GT PRN (17:50)
--- NOTE | 2018-06-07 18:42 | NUR ---
PATIENT BP STABLE AT THIS TIME CONTINUING TO TITRATE LEVO PER PROTOCOL. DIP AT 60MCG/KG/HR AND PATIENT RR STABLE AT 26. IVF PER ORDER. PATIENT BED BATH COMPLETE WITHOUT COMPLICATIONS. ROBERT FENG ON TEMP 96.7. SIU IN PLACE C/D/I/P FLUSHED. ALL CENTRAL LINES C/D/I. TUBE FEEDING PER ORDER WITH 30ML RESIDUAL AT THIS TIME. SAFETY, SKIN, AND ASPIRATION PRECAUTIONS IN PLACE. WILL ENDORSE CARE TO RN FOR HUMBERTO
--- NOTE | 2018-06-07 19:30 | NUR ---
MEAT MANAGER INITIAL NOTE RECEIVED PATIENT SEDATED, VENT DEPENDENT. NO S/S OF PAIN OR DISCOMFORT. NO RESPIRATORY DISTRESS NOTED. WITH VENT SETTINGS AC 20, TV 450, FIO2 100%, PEEP 14, SPO2 98%. NOTED WITH GENERALIZED WEEPING EDEMA. ON TELE MONITOR SR WITH OCC APACING, VPACING. GT PATENT, INTACT, IN PLACE, ON GTF WITH MINIMAL GT RESIDUAL NOTED. F/C PATENT, INTACT, DRAINING BY GRAVITY, WITH MINIMAL OUTPUT NOTED. WITH NURIA IN PLACE. ON CVP MONITORING AT 38. WITH PATITO PICC LINE PATENT AND INTACT, WITH NS AT 50ML/HR, LEVO AT 26MCG/MIN, DIPRIVAN AT 60MCG/KG/MIN. RIGHT FEMORAL HD CATH IN PLACE. PER REPORT PATIENT DID NOT TOLERATING DIALYSIS TODAY AND ONE UNIT OF PRBC WAS GIVEN. PER REPORT DR. FABIAN SPOKE WITH FAMILY TODAY AND CODE STATUS WAS CHANGED TO DNR. PATIENT WITH ROBERT HUGGER IN PLACE. HOB ELEVATED. SIDE RAILS UP AND LOCKED. BED KEPT AT LOWEST POSITION. TURNED AND REPOSITIONED. WILL CONTINUE TO MONITOR.
[2018-06-07] MEDS: FLUCONAZOLE IN NS 100 MG in PREMIX 1 EA IV SCH ×2 (19:42)
--- NOTE | 2018-06-07 20:00 | NUR ---
UNABLE TO CHART HEMODYNAMIC MONITORING FOR CVP, CVP GREATER THAN 20, COMPUTER WONT ALLOW TO CHART MAX 20. PLSE SEE CVP READINGS
--- NOTE | 2018-06-07 22:11 | NUR ---
LIGHTHOUSE KEEPER NOTE FAMILY AT BEDSIDE.
[2018-06-08] VITALS (22 sets, daily range): BP systolic 41–109; BP diastolic 36–62
--- NOTE | 2018-06-08 | NUR ---
HARDWARE SALES ASSISTANT NOTE PATIENT NOTED WITH HIGH GTF RESIDUAL >100, NO N/V NOTED, FEEDING HELD AT THIS TIME. WILL CONTINUE TO MONITOR.
[2018-06-08] MEDS: BLOOD SUGAR DIAGNOSTIC 1 EACH STRIP IN SCH (00:27)
[2018-06-08] MEDS: INSULIN REGULAR, HUMAN 100 UNIT/ML 3 ML VIAL SQ PRN (00:29)
[2018-06-08] MEDS: PROPOFOL 100 ML IV PRN (02:42)
[2018-06-08] MEDS: NOREPINEPHRINE 16 MG in IV D5W 500 ML IV PRN (03:59)
--- NOTE | 2018-06-08 04:43 | NUR ---
PRONOUNCEMENT OF : PATIENT CODE STATUS"DO NOT RESUSCITATE". PATIENT IS UNRESPONSIVE TO ANY FORM OF STIMULI. PUPILS ARE FIXED AND DILATED. RESPIRATIONS ARE ABSENT. EKG SHOWS ASYSTOLE IN 2 LEADS. PERIPHERAL PULSES ARE ABSENT. HEART TONES ARE ABSENT. NO SIGNS OF LIFE. PRONOUNCED . BY:STEPHEN LARA, MANUFACTURING ENGINEERING PROFESSOR .
[2018-06-08 04:48] LABS: EOSINOPHILS % (AUTO) 4.8 % (0.0-6.0); HEMATOCRIT 25 % (33-45); HEMOGLOBIN 8.5 g/dL (11.5-14.8); LYMPHOCYTES # (AUTO) 2.1 /CMM (0.8-4.8); LYMPHOCYTES % (AUTO) 5.2 % (20.0-44.0); MEAN CORPUSCULAR HEMOGLOBIN 28 PG (26.0-33.0); MEAN CORPUSCULAR HGB CONC 33 g/dl (31.0-36.0); MEAN CORPUSCULAR VOLUME 84 fL (82-100); MONOCYTES % (AUTO) 4.9 % (2.0-12.0); NEUTROPHILS # (AUTO) 34.1 /CMM (1.8-8.9); NEUTROPHILS % (AUTO) 85.1 % (43.0-81.0); PLATELET COUNT (AUTO) 119 /CMM (150-450); RDW COEFFICIENT OF VARIATION 20.5 (11.5-15.0); RED BLOOD CELL COUNT(AUTO) 3.03 MIL/uL (4.0-5.2)
--- NOTE | 2018-06-08 04:48 | NUR ---
DAUGHTER CALLED AND LEFT MESSAGE TO CALL HOSPITAL BACK.
--- NOTE | 2018-06-08 04:50 | NUR ---
SPOKE WITH NIECE BRANDON, INFORMED REGARDING AUNT. PER BRANDON THEY WILL NOT BE COMING TO SEE HER AUNT AND THEY WILL CALL THE MORTUARY IN THE MORNING. PER BRANDON SHE WILL CALL HER FAMILY AND INFORM THEM HERSELF. INFORMED CHARGE NURSE. INFORMED BRANDON HER AUNT WILL BE BROUGHT TO THE [facility] [place], VERBALIZED UNDERSTANDING.
--- NOTE | 2018-06-08 04:55 | NUR ---
0426: PATIENT STARTED DECLINING, HEART RATE DECREASING, CHARGE NURSE MADE AWARE AND AT BEDSIDE 0436: WITH PALPABLE PULSE HR 30, NIBP UNDETECTED, ARTERIAL LINE BP 41/36, SPO2 85% 0443: PATIENT PRONOUNCED BY CHARGE NURSE MITCHELL, VITAL SIGNS UNAPPRECIATED, EKG PEA 0452: RN JOINERY MACHINIST JOEL MADE AWARE 0455: [facility] JITENDRA NELSON INFORMED OF PATIENT PASSING. 0458: [facility] CALLED, SPOKE WITH ANSWERING SERVICE MADDI, REFERRAL NUMBER [id number] WAS GIVEN AND A AUTO TECHNICIAN MECHANIC WILL CALL BACK 0500: POSTMORTEM CARE DONE, PATIENT PLACED IN BODY BAG. 0523: MYRNA FROM [facility] CALLED BACK, PATIENT NOT A CANDIDATE FOR ORGAN DONATION. REFERENCE # [id number] 0540: ESCORTED BODY TO [facility] WITH SECURITY BY CHARGE NURSE MITCHELL
[2018-06-08 05:19] LABS: ALBUMIN 2.4 g/dL (3.4-5.0); BILIRUBIN,TOTAL 1.7 mg/dL (0.2-1.0); CALCIUM, SERUM 7.8 mg/dL (8.5-10.1); CREATININE 3.2 mg/dL (0.6-1.3); MAGNESIUM 1.9 mg/dL (1.8-2.4); POTASSIUM 5.3 mmol/L (3.5-5.1); TOTAL PROTEIN, SERUM 6.6 g/dL (6.4-8.2)
[2018-06-08 05:20] LABS: BAND % (MANUAL) 6 % (0.0-5.0); EOSINOPHILS % (MANUAL) 6 % (0-4); LYMPHOCYTES % (MANUAL) 3 % (16-48); METAMYELOCYTES % 2 % (0-0); MONOCYTES % (MANUAL) 3 % (0-11.0); MYELOCYTES % 2 % (0-0)
[2018-06-08 05:21] LABS: NEUTROPHILS % (MANUAL) 78 (42-76)
[2018-06-08 05:24] LABS: PHOSPHORUS 8.9 mg/dL (2.5-4.9)
--- NOTE | 2018-06-08 07:05 | NUR ---
RN NOTIFIED ME THAT PT IS UNRESPONSIVE. PRONOUNCED AT 0443. VENT REMOVED
== END 2018-06-08 04:43 | disposition expired | DRG 207 ==
LOC: ER 16:48 → ICU 20:22
PROC: 5A1955Z Respiratory Ventilation, Greater than 96 Consecutive Hours (ICD-10-PCS; principal; 2018-05-23)
PROC: 06HY33Z Insertion of Infusion Device into Lower Vein, Percutaneous Approach (ICD-10-PCS; 2018-05-25)
PROC: 30233N1 Transfusion of Nonautologous Red Blood Cells into Peripheral Vein, Percutaneous Approach (ICD-10-PCS; 2018-05-25)
PROC: 06HY33Z Insertion of Infusion Device into Lower Vein, Percutaneous Approach (ICD-10-PCS; 2018-06-05)
PROC: 5A1D70Z Performance of Urinary Filtration, Intermittent, Less than 6 Hours Per Day (ICD-10-PCS; 2018-06-06)
PROC: 5A12012 Performance of Cardiac Output, Single, Manual (ICD-10-PCS; 2018-06-07)
PROC: 04HK03Z Insertion of Infusion Device into Right Femoral Artery, Open Approach (ICD-10-PCS; 2018-06-07)
DX: J95.851 Ventilator associated pneumonia (principal); N17.0 Acute kidney failure with tubular necrosis; B37.1 Pulmonary candidiasis; R65.21 Severe sepsis with septic shock; J69.0 Pneumonitis due to inhalation of food and vomit; A41.9 Sepsis, unspecified organism; J96.21 Acute and chronic respiratory failure with hypoxia; G92 Toxic encephalopathy; E43 Unspecified severe protein-calorie malnutrition; J96.22 Acute and chronic respiratory failure with hypercapnia; M62.82 Rhabdomyolysis; Z99.11 Dependence on respirator [ventilator] status; N39.0 Urinary tract infection, site not specified; I48.92 Unspecified atrial flutter; E22.2 Syndrome of inappropriate secretion of antidiuretic hormone; E87.2 Acidosis; I13.0 Hypertensive heart and chronic kidney disease with heart failure and stage 1 through stage 4 chronic kidney disease, or unspecified chronic kidney disease; I46.9 Cardiac arrest, cause unspecified; I50.9 Heart failure, unspecified; I48.91 Unspecified atrial fibrillation; E83.39 Other disorders of phosphorus metabolism; J44.9 Chronic obstructive pulmonary disease, unspecified; E87.5 Hyperkalemia; Z89.512 Acquired absence of left leg below knee; Z86.718 Personal history of other venous thrombosis and embolism; Z86.73 Personal history of transient ischemic attack (TIA), and cerebral infarction without residual deficits; Z93.0 Tracheostomy status; I25.10 Atherosclerotic heart disease of native coronary artery without angina pectoris; I25.2 Old myocardial infarction; Z93.1 Gastrostomy status; E78.5 Hyperlipidemia, unspecified; K21.9 Gastro-esophageal reflux disease without esophagitis; R13.10 Dysphagia, unspecified; I73.9 Peripheral vascular disease, unspecified; N18.9 Chronic kidney disease, unspecified; R33.9 Retention of urine, unspecified; B95.2 Enterococcus as the cause of diseases classified elsewhere; D46.9 Myelodysplastic syndrome, unspecified; Z68.33 Body mass index [BMI] 33.0-33.9, adult; M19.90 Unspecified osteoarthritis, unspecified site; Z95.5 Presence of coronary angioplasty implant and graft; Z66 Do not resuscitate; Y84.8 Other medical procedures as the cause of abnormal reaction of the patient, or of later complication, without mention of misadventure at the time of the procedure; D69.6 Thrombocytopenia, unspecified; D63.8 Anemia in other chronic diseases classified elsewhere; E87.6 Hypokalemia
CPT/HCPCS: 31720; 36415; 36600; 71045-TC; 74018; 80048-TC; 80053-TC; 80061-TC; 80076-TC; 80202-TC; 81000-TC; 82040-TC; 82272-TC; 82570-TC; 82803-TC; 82962-TC; 83540-TC; 83605-TC; 83735-TC; 83880; 83935-TC; 84100-TC; 84300-TC; 84443-TC; 84484-TC; 85025-TC; 85730-TC; 86850-TC; 86921-TC; 87040-TC; 87070-TC; 87081-TC; 87086-TC; 87186-TC; 90935-TC; 93307-TC; 94002-TC; 94003-TC; 94640-TC; 94760-TC; 94762-TC; 99082-TC; A4216; A4606; A4623; A6248; A6253; A6402; C1750; C1751; C9113; J0171; J0290; J1450; J1650; J1815; J1940; J1956; J2020; J2060; J2185; J2270; J2274; J2543; J3370; J3475; J3480; J3490; J7030; J7040; J7042; J7050; J7060; J7070; J8597; P9016-BL; P9047; Z7610